=== PATIENT | female | born 1960 | race Two or more races ===

== ENCOUNTER → 2016-10-04 | Outpatient (REF) | payer OTHER, SELFPAY | LOC: M SFHCLERA 15:11 | PROVIDERS: ATTEND Nurse Practitioner Family | DX: N12 Tubulo-interstitial nephritis, not specified as acute or chronic (principal); R30.0 Dysuria | CPT/HCPCS: 87086; G0463 ==

== ENCOUNTER → 2017-03-13 | Outpatient (CLI) | payer OTHER, SELFPAY ==
--- NOTE | 2017-03-24 18:44 | REPMRS ---
Patient History The patient states she has not had a clinical breast exam in over a year. Patient is postmenopausal. No known family history of cancer. File area calling for [place] country priors Digital Mammo Screening Bilat: March 13, 2017 - Exam #: [id number] Bilateral CC and MLO view(s) were taken. Technologist: Lyssa Espinosa, Technologist Prior study comparison: February 12, 2016, digital bilateral screening mammo, performed at [address] [place] [address]. FINDINGS: There are scattered fibroglandular densities. There has been no change in the appearance of the mammogram from the prior studies. There is a mild amount of residual fibroglandular tissue which is fairly symmetric. There is no interval development of dominant mass, architectural distortion, or clustered microcalcification suggestive of malignancy. Scattered lymph nodes are seen in the axilla. No significant changes when compared with prior studies. ASSESSMENT: BI-RADS/ACR category 2 mammogram. Benign finding(s). Recommendation Routine screening mammogram in 1 year (for women over age 40). This mammogram was interpreted with the aid of an FDA-approved computer-aided dectection system. A. Negative x-ray reports should not delay biopsy if a dominant or clinically suspicious mass is present. B. Four to eight percent of cancers are not identified by mammography. C. Adenosis and dense breast may obscure an underlying neoplasm. Electronically Signed By: Adolph Hawthorne MD 03/24/17 [id number]
== END ==
LOC: M RAD 09:27
PROVIDERS: ATTEND Internal Medicine
DX: Z12.4 Encounter for screening for malignant neoplasm of cervix (principal)

== ENCOUNTER → 2018-05-22 | Outpatient (CLI) | payer OTHER ==
[2018-05-22 14:33] LABS: ALBUMIN 4.2 GM/DL (3.2-5.2); ALBUMIN/GLOBULIN RATIO 1.08 (1.00-1.93); ALKALINE PHOSPHATASE 69 U/L (45-117); ALT/SGPT 31 U/L (12-78); ANION GAP 9 MEQ/L (8-16); AST/SGOT 25 U/L (7-37); BILIRUBIN,TOTAL 0.7 MG/DL (0.2-1.0); BLOOD UREA NITROGEN 16 MG/DL (7-18); CALCIUM LEVEL 9.2 MG/DL (8.5-10.1); CARBON DIOXIDE LEVEL 25 MEQ/L (21-32); CHLORIDE LEVEL 106 MEQ/L (98-107); CHOLESTEROL LEVEL 273 MG/DL (<200); CREATININE FOR GFR 0.78 MG/DL (0.55-1.30); GLOMERULAR FILTRATION RATE > 60.0 (>51); GLUCOSE, FASTING 81 MG/DL (70-100); HDL CHOLESTEROL 60 MG/DL (>40); LDL CHOLESTEROL 178 MG/DL (<100); NON-HDL-C 213 MG/DL; POTASSIUM SERUM 4.3 MEQ/L (3.5-5.1); SODIUM LEVEL 140 MEQ/L (136-145); THYROID STIMULATING HORMONE 0.546 uIU/ML (0.358-3.740); TOTAL PROTEIN 8.1 GM/DL (6.4-8.2); TRIGLYCERIDES LEVEL 177 MG/DL (<150)
== END ==
LOC: M LAB 12:12
DX: M79.672 Pain in left foot (principal); E78.3 Hyperchylomicronemia
CPT/HCPCS: 73610

== ENCOUNTER → 2018-06-04 | Outpatient (REF) | payer OTHER, MEDICAID | LOC: M SFHCLERA 11:41 | DX: R30.0 Dysuria (principal) ==

== ENCOUNTER → 2018-12-15 | Outpatient (REF) | payer OTHER, MEDICAID ==
[2018-12-15 19:08] LABS: ALBUMIN 3.7 GM/DL (3.2-5.2); ALT/SGPT 30 U/L (12-78); BILIRUBIN,TOTAL 0.7 MG/DL (0.2-1.0); BLOOD UREA NITROGEN 12 MG/DL (7-18); CALCIUM LEVEL 8.9 MG/DL (8.8-10.2); CARBON DIOXIDE LEVEL 28 MEQ/L (21-32); CHLORIDE LEVEL 107 MEQ/L (98-107); CHOLESTEROL LEVEL 214 MG/DL (<200); CHOLESTEROL RISK RATIO 3.821 (<5); CREATININE FOR GFR 0.85 MG/DL (0.55-1.30); GLOMERULAR FILTRATION RATE > 60.0 (>45); GLUCOSE, FASTING 90 MG/DL (70-100); HDL CHOLESTEROL 56 MG/DL (>40); LDL CHOLESTEROL 135 MG/DL (<100); NON-HDL-C 158 MG/DL; POTASSIUM SERUM 4.2 MEQ/L (3.5-5.1); SODIUM LEVEL 142 MEQ/L (136-145); TOTAL PROTEIN 7.9 GM/DL (6.4-8.2); TRIGLYCERIDES LEVEL 116 MG/DL (<150)
[2018-12-15 19:50] LABS: HEMOGLOBIN A1c 5.6 %
== END ==
LOC: M LAB REF 16:55
PROVIDERS: ATTEND Family Medicine Addiction Medicine
DX: N30.01 Acute cystitis with hematuria (principal); R73.09 Other abnormal glucose

== ENCOUNTER → 2019-01-04 | Outpatient (REF) | payer OTHER, MEDICAID | LOC: M SFHCLERA 12:19 | PROVIDERS: ATTEND Physician Assistant | DX: J02.9 Acute pharyngitis, unspecified (principal) ==

== ENCOUNTER → 2019-01-11 | Outpatient (REF) | payer OTHER, MEDICAID ==
[2019-01-11 20:06] LABS: FREE T4 0.9 NG/DL (0.76-1.46); THYROID STIMULATING HORMONE 0.416 uIU/ML (0.358-3.740)
== END ==
LOC: M LAB REF 16:48
PROVIDERS: ATTEND Family Medicine Addiction Medicine
DX: E07.89 Other specified disorders of thyroid (principal)

== ENCOUNTER → 2019-07-10 | Outpatient (REF) | payer OTHER, MEDICAID ==
[2019-07-10 21:22] LABS: CHLAMYDIA DNA AMPLIFICATION NEGATIVE (NEGATIVE); GC DNA AMPLIFICATION NEGATIVE (NEGATIVE)
== END ==
LOC: M SFHCLERA 13:31
PROVIDERS: ATTEND Nurse Practitioner Family
DX: R30.0 Dysuria (principal)

== ENCOUNTER 2019-08-15 18:39 | Emergency (ER) | payer MEDICAID, OTHER ==
[~2019-08-15] VITALS: Ht 154.9 cm; Wt 61.6 kg
[2019-08-15] MEDS ORDERED: DAILTAB56 PO (18:49)
[2019-08-15 19:49] LABS: INFLUENZA A AMPLIFICATION NEGATIVE (NEGATIVE); INFLUENZA B AMPLIFICATION POSITIVE (NEGATIVE)
[2019-08-15 20:48] VITALS: BP 148/81
--- NOTE | 2019-08-16 07:41 | REP ---
Clinical: Cough and fever . Comparison: None . Technique: PA and lateral. Findings: The mediastinum and cardiac silhouette are normal. The lung arzola are clear and without acute consolidation, effusion, or pneumothorax. The skeletal structures are intact and normal. Impression: 1. No acute cardiopulmonary process. Electronically Signed by Daljit Haynes MD 08/16/2019 07:32 A
== END 2019-08-15 20:59 | disposition home or self-care (01) ==
LOC: M ED 18:39
DX: J10.89 Influenza due to other identified influenza virus with other manifestations (principal); I10 Essential (primary) hypertension

== ENCOUNTER 2019-09-18 11:25 | Emergency (ER) | payer OTHER ==
[~2019-09-18] VITALS: Ht 154.9 cm; Wt 62.1 kg
[~2019-09-18 11:25] MED LIST: DAILTAB56 PO
[2019-09-18] MEDS ORDERED: IBUP200T45 PO (11:30)
[2019-09-18] MEDS ORDERED: ACETAMINOPHEN 325 MG TAB PO ONE (12:00)
[2019-09-18 12:10] LABS: BASO % 0.1 % (0.0-1.0); EOS % 0.1 % (0.0-3.0); HEMATOCRIT 35.6 % (36.0-47.0); HEMOGLOBIN 11.9 g/dl (12.0-15.5); LYMPH # 0.8 10^3/uL (1.5-5.0); LYMPH % 6.9 % (24.0-44.0); MEAN CORPUSCULAR HEMOGLOBIN 29.9 pg (27.0-33.0); MEAN CORPUSCULAR HGB CONC 33.4 g/dl (32.0-36.5); MEAN CORPUSCULAR VOLUME 89.4 fl (80.0-96.0); MONO # 0.9 10^3/uL (0.0-0.8); MONO % 7.8 % (0.0-5.0); NEUTROPHILS # 9.8 10^3/uL (1.5-8.5); NEUTROPHILS % 84.6 % (36.0-66.0); PLATELET COUNT, AUTOMATED 253 10^3/uL (150-450); RED BLOOD COUNT 3.98 10^6/uL (4.00-5.40); WHITE BLOOD COUNT 11.6 10^3/uL (4.0-10.0)
[2019-09-18 12:32] LABS: ALBUMIN 3.2 GM/DL (3.2-5.2); BILIRUBIN,DIRECT 0.4 MG/DL (0.0-0.2); TOTAL PROTEIN 6.9 GM/DL (6.4-8.2)
--- NOTE | 2019-09-18 12:36 | REP ---
AP PORTABLE CHEST: 09/18/2019. Comparison PA lateral 08/15/2019. CLINICAL HISTORY: Cough and fever. FINDINGS: Lungs less well inflated than on the previous study with mild hypoinflation. Some minor basilar atelectatic changes without dense consolidation or pleural effusion noted. A few cuffed bronchi in the perihilar regions might reflect reactive airway disease or bronchitis. There is no gross cardiomegaly, vascular redistribution or edema. The aorta is calcified at the arch, mildly tortuous but unchanged and normal for age. The airway is intact. Bones are without acute finding. IMPRESSION: 1. Some minor basilar fibrotic changes and perihilar changes of bronchitis or reactive airway disease. No dense consolidation, visible effusion or other acute finding. 2. Heart size normal for portable technique with hypoinflation. No evidence of edema. Electronically Signed by Adolph Hawthorne MD 09/18/2019 07:59 P
[2019-09-18] MEDS ORDERED: ONDANSETRON 4MG/2ML VIAL (J2405) IV ONE (13:00)
[2019-09-18] MEDS ORDERED: NS 1,000 ML IV ONE (13:00)
[2019-09-18] MEDS ORDERED: CIPROFLOXACIN 400 MG in IV 1 EA IV ONE (13:00)
--- NOTE | 2019-09-18 13:46 | REP ---
CT ABDOMEN PELVIS WITHOUT CONTRAST: 09/18/2019 CLINICAL HISTORY: Abdominal pain. Evaluate for stone and/or UTI. TECHNIQUE: Renal stone protocol utilized with coronal and sagittal reconstructions. FINDINGS: CT abdomen lung bases show fibrotic and/or atelectatic changes in both lower lung zones better visualized than on the portable chest this date. No definite effusion. Heart size upper limits of normal. No pericardial thickening or effusion and no hiatal hernia. I see no hepatomegaly with a vertical diameter of the right lobe of the liver 16.2 cm midclavicular line. Left lobe not grossly enlarged. Contour of the liver smooth. No focal hepatic mass, biliary dilatation or adjacent ascites. Gallbladder shows no calcified stone or mass. The pancreas shows no mass, ductal dilatation or inflammatory change. No peripancreatic adenopathy or fluid collection. Adrenal glands show slight thickening of limbs that may reflect some mild adrenal hyperplasia. No mass or nodule. Kidneys show no renal stone, hydronephrosis, hydroureter or ureteral stone. No displacement of the course of the ureter. There are tiny periaortic and mesenteric nodes, which I would not regard as pathologic size by CT criteria. No ascites in the peroneal gutters. Index is seen and normal. No perforation or free air in the abdomen or pelvis on lung window review of all CT slices. Small bowel loops show scattered fluid and air but no dilated loops or inflammatory changes in the mesentery. Stool and gas are scattered in the colon without signs of colitis, diverticulitis, stricture or mass. The distal transverse colon, splenic flexure and left colon are collapsed without inflammatory changes in the adjacent fat that would clearly define colitis. The bone windows show lumbar lower thoracic vertebral levels with small marginal osteophytes. Posterior elements intact. There is no disc space narrowing or compression deformity. Visualized lower ribs are intact. CT PELVIS: Bone windows show the sacrum, SI joints, iliac bones, ischia, acetabuli and hips without fracture. There are some hip osteoarthritic changes bilaterally, mild and stable. Bladder, the distal ureters and urethral are without stone or mass visible on this study The distal left colon, sigmoid and rectum are grossly intact without signs of colitis or diverticulitis. There is no pelvic free fluid in the peroneal gutters or cul-de-sac. Uterus anteverted, tilted slightly towards the right but not enlarged. Small bowel loops in the pelvis intact. There is no ventral or inguinal hernia or pathologic sized inguinal adenopathy. The visualized muscles and soft tissues about the pelvis and hips as well as the buttocks and proximal thighs are all unremarkable. IMPRESSION: 1. No renal, ureteral or bladder stone. No hydronephrosis, hydroureter, mass or extrinsic mass effect. 2. Liver, spleen, gallbladder and adrenal glands are unchanged without acute finding. 3. Liver, spleen, gallbladder, adrenal glands and pancreas without acute finding. Small bowel loops intact. No free air, ascites, abscess or adenopathy. Electronically Signed by Adolph Hawthorne MD 09/18/2019 08:01 P
[2019-09-18] MEDS ORDERED: POTASSIUM CHLORIDE 10 MEQ SR TABLET PO ONE (14:45)
[2019-09-18 15:15] VITALS: BP 106/56
[2019-09-18] MEDS ORDERED: ZOFR4TAB16 PO (15:29)
[2019-09-18] MEDS ORDERED: CIPR-249 PO (15:29)
[2019-09-18] MEDS ORDERED: K-TA10TA PO (15:31)
== END 2019-09-18 15:56 | disposition home or self-care (01) ==
LOC: M ED 11:25
DX: N12 Tubulo-interstitial nephritis, not specified as acute or chronic (principal); R11.2 Nausea with vomiting, unspecified; R10.9 Unspecified abdominal pain; I10 Essential (primary) hypertension; E78.9 Disorder of lipoprotein metabolism, unspecified; G43.909 Migraine, unspecified, not intractable, without status migrainosus; Z87.440 Personal history of urinary (tract) infections
CPT/HCPCS: 71045; 74176; 80047; 80076; 81001; 83605; 83690; 85025; 87040; 87088; 87186; 93041; 94760; 96365; 96366; 96375; 99285; J0744; J2405

== ENCOUNTER → 2019-11-16 | Outpatient (REF) | payer OTHER, MEDICAID ==
[~2019-11-16] MED LIST changes: +CIPR-249 PO; +IBUP200T45 PO; +K-TA10TA PO; +ZOFR4TAB16 PO
[2019-11-16 12:51] LABS: BASO % 0.6 % (0.0-1.0); EOS # 0.1 10^3/uL (0.0-0.5); EOS % 1.7 % (0.0-3.0); HEMOGLOBIN 13.5 g/dl (12.0-15.5); LYMPH # 2.3 10^3/uL (1.5-5.0); LYMPH % 43.8 % (24.0-44.0); MEAN CORPUSCULAR HEMOGLOBIN 30.3 pg (27.0-33.0); MEAN CORPUSCULAR HGB CONC 33.8 g/dl (32.0-36.5); MEAN CORPUSCULAR VOLUME 89.9 fl (80.0-96.0); MONO # 0.3 10^3/uL (0.0-0.8); MONO % 4.9 % (0.0-5.0); NEUTROPHILS # 2.6 10^3/uL (1.5-8.5); NEUTROPHILS % 48.8 % (36.0-66.0); PLATELET COUNT, AUTOMATED 259 10^3/uL (150-450); RED BLOOD COUNT 4.45 10^6/uL (4.00-5.40); WHITE BLOOD COUNT 5.3 10^3/uL (4.0-10.0)
[2019-11-16 13:24] LABS: ALT/SGPT 24 U/L (12-78); BILIRUBIN,TOTAL 0.8 MG/DL (0.2-1.0); BLOOD UREA NITROGEN 16 MG/DL (7-18); CALCIUM LEVEL 9.4 MG/DL (8.8-10.2); CARBON DIOXIDE LEVEL 30 MEQ/L (21-32); CHLORIDE LEVEL 107 MEQ/L (98-107); CHOLESTEROL LEVEL 212 MG/DL (<200); CHOLESTEROL RISK RATIO 3.854 (<5); CREATININE FOR GFR 0.88 MG/DL (0.55-1.30); FREE T4 1.01 NG/DL (0.76-1.46); GLOMERULAR FILTRATION RATE > 60.0 (>45); GLUCOSE, FASTING 88 MG/DL (70-100); HDL CHOLESTEROL 55 MG/DL (>40); LDL CHOLESTEROL 124 MG/DL (<100); NON-HDL-C 157 MG/DL; POTASSIUM SERUM 4.3 MEQ/L (3.5-5.1); SODIUM LEVEL 141 MEQ/L (136-145); THYROID STIMULATING HORMONE 0.541 uIU/ML (0.358-3.740); TOTAL 25(OH) VITAMIN D 29.4 NG/ML (30.0-100.0); TOTAL PROTEIN 7.8 GM/DL (6.4-8.2); TRIGLYCERIDES LEVEL 164 MG/DL (<150)
[2019-11-16 16:34] LABS: HEMOGLOBIN A1c 5.8 %
== END ==
LOC: M LAB REF 12:04
PROVIDERS: ATTEND Nurse Practitioner Family
DX: Z13.9 Encounter for screening, unspecified (principal); J30.9 Allergic rhinitis, unspecified; E07.89 Other specified disorders of thyroid; R73.09 Other abnormal glucose; E55.9 Vitamin D deficiency, unspecified

== ENCOUNTER → 2020-02-15 | Outpatient (REF) | payer OTHER, MEDICAID ==
[2020-02-15 13:21] LABS: BASO % 0.3 % (0.0-1.0); EOS # 0.1 10^3/uL (0.0-0.5); EOS % 2.4 % (0.0-3.0); HEMATOCRIT 38.6 % (36.0-47.0); HEMOGLOBIN 12.8 g/dl (12.0-15.5); LYMPH # 2.8 10^3/uL (1.5-5.0); LYMPH % 47.9 % (24.0-44.0); MEAN CORPUSCULAR HGB CONC 33.2 g/dl (32.0-36.5); MEAN CORPUSCULAR VOLUME 90.4 fl (80.0-96.0); MONO # 0.3 10^3/uL (0.0-0.8); MONO % 5.1 % (0.0-5.0); NEUTROPHILS # 2.6 10^3/uL (1.5-8.5); PLATELET COUNT, AUTOMATED 265 10^3/uL (150-450); RED BLOOD COUNT 4.27 10^6/uL (4.00-5.40); WHITE BLOOD COUNT 5.9 10^3/uL (4.0-10.0)
[2020-02-15 13:49] LABS: HEMOGLOBIN A1c 5.7 %
[2020-02-15 13:52] LABS: ALBUMIN 3.9 GM/DL (3.2-5.2); ALT/SGPT 24 U/L (12-78); BILIRUBIN,TOTAL 0.7 MG/DL (0.2-1.0); BLOOD UREA NITROGEN 14 MG/DL (7-18); CALCIUM LEVEL 9.5 MG/DL (8.8-10.2); CARBON DIOXIDE LEVEL 27 MEQ/L (21-32); CHLORIDE LEVEL 108 MEQ/L (98-107); CHOLESTEROL LEVEL 235 MG/DL (<200); CHOLESTEROL RISK RATIO 4.433 (<5); CREATININE FOR GFR 0.91 MG/DL (0.55-1.30); FREE T4 0.98 NG/DL (0.76-1.46); GLOMERULAR FILTRATION RATE > 60.0 (>45); GLUCOSE, FASTING 83 MG/DL (70-100); HDL CHOLESTEROL 53 MG/DL (>40); LDL CHOLESTEROL 139 MG/DL (<100); NON-HDL-C 182 MG/DL; POTASSIUM SERUM 4.2 MEQ/L (3.5-5.1); SODIUM LEVEL 141 MEQ/L (136-145); THYROID STIMULATING HORMONE 0.431 uIU/ML (0.358-3.740); TOTAL 25(OH) VITAMIN D 37.9 NG/ML (30.0-100.0); TOTAL PROTEIN 7.9 GM/DL (6.4-8.2); TRIGLYCERIDES LEVEL 215 MG/DL (<150)
[2020-02-15 15:52] LABS: APPEARANCE, URINE CLEAR (CLEAR); BACTERIA, URINE AUTO NEGATIVE (NEGATIVE); BILIRUBIN, URINE AUTO NEGATIVE (NEGATIVE); BLOOD, URINE BLOOD 1+ (NEGATIVE); COLOR, URINE STRAW (YELLOW); GLUCOSE, URINE (UA) AUTO NEGATIVE (NEGATIVE); KETONE, URINE AUTO NEGATIVE (NEGATIVE); LEUKOCYTE ESTERASE, URINE AUTO NEGATIVE (NEGATIVE); MUCUS, URINE SMALL (NEGATIVE); NITRITE, URINE AUTO NEGATIVE (NEGATIVE); PROTEIN, URINE AUTO NEGATIVE (NEGATIVE); RBC, URINE AUTO 2 /HPF (0-3); SPECIFIC GRAVITY URINE AUTO 1.005 (1.002-1.035); SQUAMOUS EPITHELIAL CELL UR AU 0 /HPF (0-6); UROBILINOGEN, URINE AUTO 0.2 mg/dL (0.0-2.0); WBC, URINE AUTO 1 /HPF (0-3)
== END ==
LOC: M LAB REF 11:57
PROVIDERS: ATTEND Nurse Practitioner Family
DX: E78.5 Hyperlipidemia, unspecified (principal); R73.03 Prediabetes; Z13.9 Encounter for screening, unspecified; E07.89 Other specified disorders of thyroid; R50.9 Fever, unspecified; E78.3 Hyperchylomicronemia

== ENCOUNTER 2020-03-31 23:37 | Emergency (ER) | payer OTHER, MEDICAID ==
[2020-03-31] MEDS ORDERED: ACETAMINOPHEN 500 MG TAB ONE (23:54)
[2020-03-31] MEDS ORDERED: ACETAMINOPHEN 500 MG TAB As Ordered ONE (23:54)
[2020-04-01] MEDS ORDERED: cefTRIAXone SOD 1GM VIAL (J0696 PER 250MG) As Ordered ONE (00:48)
[2020-04-01] MEDS ORDERED: ISOVUE-370 76% 100ML VIAL As Ordered ONE (01:12)
[2020-05-14 18:20] LABS: BASO % 0.2 % (0.0-1.0); EOS # 0.1 10^3/uL (0.0-0.5); EOS % 0.6 % (0.0-3.0); HEMATOCRIT 34.6 % (36.0-47.0); HEMOGLOBIN 11.7 g/dl (12.0-15.5); LYMPH # 2.1 10^3/uL (1.5-5.0); LYMPH % 20.8 % (24.0-44.0); MEAN CORPUSCULAR HEMOGLOBIN 30.5 pg (27.0-33.0); MEAN CORPUSCULAR HGB CONC 33.8 g/dl (32.0-36.5); MEAN CORPUSCULAR VOLUME 90.1 fl (80.0-96.0); MONO # 0.8 10^3/uL (0.0-0.8); MONO % 8.1 % (0.0-5.0); NEUTROPHILS # 7.2 10^3/uL (1.5-8.5); NEUTROPHILS % 69.9 % (36.0-66.0); PLATELET COUNT, AUTOMATED 321 10^3/uL (150-450); RED BLOOD COUNT 3.84 10^6/uL (4.00-5.40); WHITE BLOOD COUNT 10.3 10^3/uL (4.0-10.0)
[2020-05-14 18:38] LABS: APPEARANCE, URINE CLEAR (CLEAR); BACTERIA, URINE AUTO 2+ (NEGATIVE); BILIRUBIN, URINE AUTO NEGATIVE (NEGATIVE); BLOOD, URINE BLOOD 2+ (NEGATIVE); COLOR, URINE YELLOW (YELLOW); GLUCOSE, URINE (UA) AUTO NEGATIVE (NEGATIVE); KETONE, URINE AUTO NEGATIVE (NEGATIVE); LEUKOCYTE ESTERASE, URINE AUTO 2+ (NEGATIVE); NITRITE, URINE AUTO NEGATIVE (NEGATIVE); PROTEIN, URINE AUTO NEGATIVE (NEGATIVE); RBC, URINE AUTO 4 /HPF (0-3); SPECIFIC GRAVITY URINE AUTO 1.004 (1.002-1.035); SQUAMOUS EPITHELIAL CELL UR AU 0 /HPF (0-6); UROBILINOGEN, URINE AUTO 0.2 mg/dL (0.0-2.0); WBC, URINE AUTO 15 /HPF (0-3)
[2020-06-19 11:57] LABS: ALBUMIN 3.2 GM/DL (3.2-5.2); ALT/SGPT 98 IU/L (0-32); BILIRUBIN,DIRECT 0.2 MG/DL (0.0-0.2); BILIRUBIN,TOTAL 0.6 MG/DL (0.2-1.0); BLOOD UREA NITROGEN 13 MG/DL (7-18); CALCIUM LEVEL 9.1 MG/DL (8.8-10.2); CARBON DIOXIDE LEVEL 26 mmol/L (20-29); CHLORIDE LEVEL 107 MEQ/L (98-107); CREATININE FOR GFR 0.88 MG/DL (0.55-1.30); GLOMERULAR FILTRATION RATE > 60.0 (>45); GLUCOSE, FASTING 91 MG/DL (70-100); POTASSIUM SERUM 3.5 MEQ/L (3.5-5.1); SODIUM LEVEL 139 MEQ/L (136-145); TOTAL PROTEIN 7.6 GM/DL (6.4-8.2)
== END 2020-04-01 03:05 | disposition home or self-care (01) ==
LOC: M ED 23:37
DX: N28.89 Other specified disorders of kidney and ureter (principal); N39.0 Urinary tract infection, site not specified; Z79.899 Other long term (current) drug therapy
CPT/HCPCS: 74177; 80048; 80076; 81001; 85025; 87088; 87186; 96374; 99284; J0696; Q9967

== ENCOUNTER → 2020-05-10 | Outpatient (CLI) | payer MEDICAID, OTHER ==
--- NOTE | 2020-05-25 12:42 | REP ---
RENAL ULTRASOUND: 05/10/20 CLINICAL: Possible renal mass. TECHNIQUE: Real time natarajan scale ultrasound evaluation using curved array transducer. FINDINGS: The bilateral kidneys are normal in contour, size, echogenicity and reniform shape without hydronephrosis, nephrolithiasis, cystic or obvious renal mass lesion. The right kidney measures 10.9 x 3.6 x 3.4cm. The left kidney measures 10.6 x 4.4x 4.7cm The bladder is normal without wall thickening or mass lesion and demonstrates bilateral ureteral jets. IMPRESSION: 1. Essentially normal age appropriate appearance to the bilateral kidneys without hydronephrosis or obvious renal mass lesion. Comparison is made with CT 04/01/20 and the findings involving the right kidney may have reflected pyelonephritis MTDD
== END ==
LOC: M RAD 10:47
PROVIDERS: ATTEND Nurse Practitioner Women's Health
DX: N39.0 Urinary tract infection, site not specified (principal)

== ENCOUNTER → 2020-06-06 | Outpatient (REF) | payer OTHER, MEDICAID ==
[2020-06-06 12:42] LABS: BASO % 0.4 % (0.0-1.0); EOS # 0.2 10^3/uL (0.0-0.5); EOS % 4.3 % (0.0-3.0); HEMATOCRIT 40.3 % (36.0-47.0); HEMOGLOBIN 13.4 g/dl (12.0-15.5); LYMPH # 2.2 10^3/uL (1.5-5.0); LYMPH % 44.2 % (24.0-44.0); MEAN CORPUSCULAR HEMOGLOBIN 30.2 pg (27.0-33.0); MEAN CORPUSCULAR HGB CONC 33.3 g/dl (32.0-36.5); MONO # 0.3 10^3/uL (0.0-0.8); MONO % 6.3 % (0.0-5.0); NEUTROPHILS # 2.2 10^3/uL (1.5-8.5); NEUTROPHILS % 44.6 % (36.0-66.0); RED BLOOD COUNT 4.43 10^6/uL (4.00-5.40); WHITE BLOOD COUNT 4.9 10^3/uL (4.0-10.0)
[2020-06-06 12:58] LABS: APPEARANCE, URINE CLEAR (CLEAR); BACTERIA, URINE AUTO NEGATIVE (NEGATIVE); BILIRUBIN, URINE AUTO NEGATIVE (NEGATIVE); BLOOD, URINE BLOOD 1+ (NEGATIVE); COLOR, URINE STRAW (YELLOW); GLUCOSE, URINE (UA) AUTO NEGATIVE (NEGATIVE); KETONE, URINE AUTO NEGATIVE (NEGATIVE); LEUKOCYTE ESTERASE, URINE AUTO NEGATIVE (NEGATIVE); MUCUS, URINE SMALL (NEGATIVE); NITRITE, URINE AUTO NEGATIVE (NEGATIVE); PROTEIN, URINE AUTO NEGATIVE (NEGATIVE); RBC, URINE AUTO 1 /HPF (0-3); SPECIFIC GRAVITY URINE AUTO 1.009 (1.002-1.035); SQUAMOUS EPITHELIAL CELL UR AU 0 /HPF (0-6); UROBILINOGEN, URINE AUTO 0.2 mg/dL (0.0-2.0); WBC, URINE AUTO 1 /HPF (0-3)
[2020-06-06 13:25] LABS: HEMOGLOBIN A1c 5.2 %
[2020-06-06 13:39] LABS: ALBUMIN 3.9 GM/DL (3.2-5.2); ALT/SGPT 24 U/L (12-78); BILIRUBIN,TOTAL 0.5 MG/DL (0.2-1.0); BLOOD UREA NITROGEN 18 MG/DL (7-18); CALCIUM LEVEL 9.7 MG/DL (8.8-10.2); CARBON DIOXIDE LEVEL 27 MEQ/L (21-32); CHLORIDE LEVEL 107 MEQ/L (98-107); CHOLESTEROL LEVEL 247 MG/DL (<200); CREATININE FOR GFR 0.86 MG/DL (0.55-1.30); GLOMERULAR FILTRATION RATE > 60.0 (>45); GLUCOSE, FASTING 87 MG/DL (70-100); HDL CHOLESTEROL 63 MG/DL (>40); LDL CHOLESTEROL 160 MG/DL (<100); NON-HDL-C 184 MG/DL; POTASSIUM SERUM 4.4 MEQ/L (3.5-5.1); SODIUM LEVEL 140 MEQ/L (136-145); TRIGLYCERIDES LEVEL 118 MG/DL (<150)
== END ==
LOC: M LAB REF 11:29
PROVIDERS: ATTEND Nurse Practitioner Family
DX: R73.03 Prediabetes (principal); Z13.9 Encounter for screening, unspecified; N76.0 Acute vaginitis

== ENCOUNTER 2020-09-21 16:42 | Emergency (ER) | payer OTHER, MEDICAID ==
[~2020-09-21] VITALS: Ht 157.5 cm; Wt 61.4 kg
[2020-09-21 16:42] VITALS: BP 162/77
--- OUTSIDE RECORDS SUMMARY | 2020-09-21 16:49 | CCD ---
Author Author [facility] Organization [facility] Address Unknown Phone Unavailable Care Team Providers Care Audio Production Instructor Name Role Phone Amy Quiroz Unavailable PROBLEMS Type Condition ICD9-CM Code IUI26-BH Code Onset Dates Condition S tatus SNOMED Code Notes Problem Lichen sclerosus L90.0 Active 90137559 Problem Hematuria due to acute cystitis N30.01 Active [id number] ALLERGIES No Known Allergies ENCOUNTERS from 1960 to 2020-07-23 Encounter Location Date Provider Diagnosis [facility] [place] [address] [address] December, Amy Quiroz Influenza B J10.1 ; Acute sinusitis, recurrence not specified, unspecified location J01.90 ; Sore throat J02.9 and Cough R05 IMMUNIZATIONS Vaccine Route Administration Date Status Influenza (6mo & up) Fluzone Unknown Oct 01, 2017 Oth ers Influenza (6mo & up) Fluzone Unknown May 27, 2016 Adm inistered SOCIAL HISTORY Tobacco Use: Social History Observation Description Date Details (start date - stop date) Never Smoker Sex Assigned At : Social History Observation Description Sex Assigned At Unknown Language: Question Answer Notes Languages spoken: Other Philipino Sexual Hx: Question Answer Notes Had sex in the last 12 months (vaginal, oral, or anal)? No Have you ever had an STD? No Alcohol Screening: Question Answer Notes Did you have a drink containing alcohol in the past year? No Points 0 Interpretation Negative BMI Care Goal Follow-Up Question Answer Notes Above Normal BMI Follow-Up Lifestyle education regarding t Tobacco Use: Question Answer Notes Are you a: never smoker never smoker REASON FOR REFERRAL No Information VITAL SIGNS Weight 133 lbs December, Height 60 in December, BMI 25.97 kg/m2 December, Heart Rate 71 /min December, Respiratory Rate 17 /min December, Temperature 98.1temporal degrees Fahrenheit December, Oximetry 99 December, Blood pressure systolic 163 mm Hg December, Blood pressure diastolic 82 mm Hg December, MEDICATIONS Medication SIG (Take, Route, Frequency, Duration) Notes Start Da te End Date Status Tylenol 325 MG 1 tablet as needed Orally every 4 hrs Active Clayton 3 1000 MG 1 capsule Orally Once a day for 30 day(s) Active Phenazopyridine HCl 200 MG 1 tablet after meals Orally Three times a day for 2 day(s) Oct, Active Cipro 500 MG 1 tablet Orally Twice a day for 7 day(s) 16 N 2018 Not-Taking Albuterol Sulfate HFA 108 (90 Base) MCG/ACT 1 puff as needed Inhalation every 4 hrs Not-Taking Airborne - as directed Orally Active Triamcinolone Acetonide 0.1 % 1 application Externally AAA Twice a day every other day x 1-2 wks, then prn for 30 days Oct, Active Multivitamin Adults 50+ A ctive Flonase 50 MCG/DOSE 1 spray in each nostril Nasally Once a day f or 30 day(s) Active Fish Oil 1000 MG 1 capsule Orally Once a day Active PROCEDURES No Information RESULTS Component Value Reference Range Rapid Flu (Iwona Influenza A+B VANDANA) Reviewed date:01/04/2019 12:18:28 Interpretation: Performing Lab:[facility], ,[place] [address] Internal Controls Performed (Y/N) yes Result A (Positive/Negative) neg Result B (Positive/Negative) pos Rapid Strep (Iwona Strep A+ VANDANA) Reviewed date:01/04/2019 12:18:28 Interpretation: Performing Lab:[facility], [place] [address] Internal Controls Performed (Y/N) yes Rapid Strep (Iwona Strep A+ VANDANA) Result (Positive/Negative) neg GATS (NEGATIVE STREP SCREEN) Reviewed date:01/05/2019 13:18:52 Interpretation: Performing Lab:[facility], [facility] [id number] , ,[place] [address] GATS CULTURE (NEG STREP SCR) FULL REPORT IN LAB NOTES (eCW and [facility]). GATS CULTURE (NEG STREP SCR) NEGATIVE FOR STREP PYOGENES (GROUP A) GATS CULTURE (NEG STREP SCR) REASON FOR VISIT STREP MEDICAL (GENERAL) HISTORY Type Description Date Medical History hyperlipidemia Surgical History No Surgical history information Hospitalization History typhoid fever Goals Section No Information Health Concerns No Information MEDICAL EQUIPMENT No Information MENTAL STATUS No Information FUNCTIONAL STATUS No Information ASSESSMENTS Encounter Date Diagnosis Assessment Notes Treatment Notes Treatm ent Clinical Notes December, Influenza B (ICD-10 - J10.1) You have influenza. This is a contagious virus; avoid others until you are feeling better and have been without fever for at least 24 hours. Supportive measures, ensure adequate fluid hydration, frequent hand washing, fever reducers as needed. Saline nasal drops, humidifier use, rest. Go to the ER if your symptoms worsen. December, Acute sinusitis, recurrence not specified, unspecified location (ICD-10 - J01.90) You may have a sinus infection. A prescription for antibiotics has been sent to your pharmacy. Take all medication as directed. Probiotics are also recommended while on antibiotics and for 3-4 weeks afterward to help prevent antibiotic induced diarrhea. Supportive measures, ensure adequate fluid hydration, saline nasal spray, humidifier use, frequent hand washing, and rest. Follow up if symptoms worsen/persist December, Sore throat (ICD-10 - J02.9) December, Cough (ICD-10 - R05) You have a very faint wheeze. You will be prescribed an inhaler. Follow-up if your sympotms worsen/persist PLAN OF TREATMENT Medication Medication Name Sig Start Date Stop Date Triamcinolone Acetonide 0.1 % 1 application Externally AAA Twice a day every other day x 1-2 wks, then prn for 30 days Oct, Treatment Notes Assessment Notes Clinical Notes Influenza B You have influenza. This is a contagious virus; avoid others until you are feeling better and have been without fever for at least 24 hours. Supportive measures, ensure adequate fluid hydration, frequent hand washing, fever reducers as needed. Saline nasal drops, humidifier use, rest. Go to the ER if your symptoms worsen. Acute sinusitis, recurrence not specified, unspecified location You may have a sinus infection. A prescription for antibiotics has been sent to your pharmacy. Take all medication as directed. Probiotics are also recommended while on antibiotics and for 3-4 weeks afterward to help prevent antibiotic induced diarrhea. Supportive measures, ensure adequate fluid hydration, saline nasal spray, humidifier use, frequent hand washing, and rest. Follow up if symptoms wo rsen/persist Cough You have a very faint wheeze . You will be prescribed an inhaler. Follow-up if your sympotms worsen/persist Next Appt Details prn Reason: Provider Name:Nicholas Mendez, 02:00:00 PM, [id number], [place], [address], Insurance Providers Payer Name Payer Address Payer Phone Insured Name Patient Relati onship to Insured Coverage Start Date Coverage End Date [facility] [employer] [facility] [address] [facility] [phone] TERENCE SIBLEY self
--- OUTSIDE RECORDS SUMMARY | 2020-09-21 16:49 | CCD ---
Author Author [facility] Organization [facility] Address Unknown Phone Unavailable Care Team Providers Care Leakage Tester Name Role Phone Liz Brown SWATCHER SWATCHER Unavailable Unavailable [place], A Juli SWATCHER Unavailable Unavailable [place], A Juli SWATCHER Unavailable Unavailable [place], A Juli SWATCHER Unavailable Unavailable [place], A Juli SWATCHER Unavailable Unavailable [place], A Juli SWATCHER Unavailable Unavailable [place], A Juli SWATCHER Unavailable Unavailable [place], A Juli SWATCHER Unavailable Unavailable [place], A Ujli SWATCHER Unavailable Unavailable Ruben, A Juli SWATCHER Unavailable Unavailable Ruben, A Juli SWATCHER Unavailable Unavailable Ruben, A Juli SWATCHER Unavailable Unavailable Ruben, A Juli SWATCHER Unavailable Unavailable Ruben, A Juli SWATCHER Unavailable Unavailable Ruben, A Juli SWATCHER Unavailable Unavailable Ruben, A Juli SWATCHER Unavailable Unavailable Ruben, A Juli SWATCHER Unavailable Unavailable Ruben, A Juli SWATCHER Unavailable Unavailable Ruben, A Juli SWATCHER Unavailable Unavailable Ruben, A Juli SWATCHER Unavailable Unavailable Ruben, A Juli SWATCHER Unavailable Unavailable Ruben, A Juli SWATCHER Unavailable Unavailable Ruben, A Juli SWATCHER Unavailable Unavailable Ruben, A Juli SWATCHER Unavailable Unavailable Ruben, A Juli SWATCHER Unavailable Unavailable Ruben, A Juli SWATCHER Unavailable Unavailable Ruben, A Juli SWATCHER Unavailable Unavailable Ruben, A Juli SWATCHER Unavailable Unavailable Brown, F Liz SWATCHER-BC Unavailable Unavailable Brown, F Liz SWATCHER-BC Unavailable Unavailable Brown, F Liz SWATCHER-BC Unavailable Unavailable Brown, F Liz SWATCHER-BC Unavailable Unavailable Brown, F Liz SWATCHER-BC Unavailable Unavailable Brown, F Liz SWATCHER-BC Unavailable Unavailable Brown, F Liz SWATCHER-BC Unavailable Unavailable Brown, F Liz SWATCHER-BC Unavailable Unavailable Brown, F Liz SWATCHER-BC Unavailable Unavailable Brown, F Liz SWATCHER-BC Unavailable Unavailable Brown, F Liz SWATCHER-BC Unavailable Unavailable Brown, F Liz SWATCHER-BC Unavailable Unavailable Brown, F Liz SWATCHER-BC Unavailable Unavailable Brown, F Liz SWATCHER-BC Unavailable Unavailable Brown, F Liz SWATCHER-BC Unavailable Unavailable Brown, F Liz SWATCHER-BC Unavailable Unavailable Brown, F Liz SWATCHER-BC Unavailable Unavailable Brown, F Liz SWATCHER-BC Unavailable Unavailable Brown, F Liz SWATCHER-BC Unavailable Unavailable Brown, F Liz SWATCHER-BC Unavailable Unavailable Brown, F Liz SWATCHER-BC Unavailable Unavailable Brown, F Liz SWATCHER-BC Unavailable Unavailable [place], Juli SWATCHER SWATCHER Unavailable Unavailable [place], A Juli SWATCHER Unavailable Unavailable [place], A Juli SWATCHER Unavailable Unavailable [place], A Juli SWATCHER Unavailable Unavailable [place], A Juli SWATCHER Unavailable Unavailable [place], A Juli SWATCHER Unavailable Unavailable [place], A Juli SWATCHER Unavailable Unavailable [place], A Juli SWATCHER Unavailable Unavailable [place], A Juli SWATCHER Unavailable Unavailable [place], A Juli SWATCHER Unavailable Unavailable [place], A Juli SWATCHER Unavailable Unavailable [place], A Juli SWATCHER Unavailable Unavailable [place], A Juli SWATCHER Unavailable Unavailable [place], A Juli SWATCHER Unavailable Unavailable [place], A Juli SWATCHER Unavailable Unavailable [place], A Juli SWATCHER Unavailable Unavailable [place], A Juli SWATCHER Unavailable Unavailable [place], A Juli SWATCHER Unavailable Unavailable [place], A Juli SWATCHER Unavailable Unavailable [place], A Juli SWATCHER Unavailable Unavailable Ruben, A Juli SWATCHER Unavailable Unavailable Ruben, A Juli SWATCHER Unavailable Unavailable Ruben, A Juli SWATCHER Unavailable Unavailable Ruben, A Juli SWATCHER Unavailable Unavailable Ruben, A Juli SWATCHER Unavailable Unavailable Ruben, A Juli SWATCHER Unavailable Unavailable Ruben, A Juli SWATCHER Unavailable Unavailable Ruben, A Juli SWATCHER Unavailable Unavailable Re-disclosure Warning The records that you are about to access may contain information from federally-assisted alcohol or drug abuse programs. If such information is present, then the following federally mandated warning applies: This information has been disclosed to you from records protected by federal confidentiality rules (42 CFR part 2). The federal rules prohibit you from making any further disclosure of this information unless further disclosure is expressly permitted by the written consent of the person to whom it pertains or as otherwise permitted by 42 CFR part 2. A general authorization for the release of medical or other information is NOT sufficient for this purpose. The Federal rules restrict any use of the information to criminally investigate or prosecute any alcohol or drug abuse patient.The records that you are about to access may contain highly sensitive health information, the redisclosure of which is protected by Article 27-F of the [facility] Public Health law. If you continue you may have access to information: Regarding HIV / AIDS; Provided by facilities licensed or operated by the [facility] Office of Mental Health; or Provided by the [facility] Office for People With Developmental Disabilities. If such information is present, then the following [facility] mandated warning applies: This information has been disclosed to you from confidential records which are protected by state law. State law prohibits you from making any further disclosure of this information without the specific written consent of the person to whom it pertains, or as otherwise permitted by law. Any unauthorized further disclosure in violation of state law may result in a fine or care home sentence or both. A general authorization for the release of medical or other information is NOT sufficient authorization for further disc losure. Encounters Encounter Providers Location Date Indications Data Source(s ) BC [place]-: [address] [place] [address], Ph. Attender: Juli YANCEY [facility] Medical 06/13/2020 12:00:00 AM EDT [facility] ([facility]) Outpatient Attender: BC HOFFMANP FP 06/10/2020 03:57:00 P M EDT [facility] Outpatient Attender: Juli HOFFMANP FP 06/10/2020 03:5 6:04 PM EDT [facility] Outpatient Attender: BC HOFFMANP FP 06/10/2020 03:56:02 P M EDT [facility] Outpatient Attender: Juli HOFFMANP FP 06/09/2020 01:1 1:59 AM EDT [facility] Outpatient Attender: BC HOFFMANP FP 06/08/2020 11:51:00 A M EDT [facility] Outpatient Attender: BC HOFFMANP FP 06/06/2020 08:37:01 A M EDT [facility] Outpatient Attender: BC Miranda SWATCHER FP 06/05/2020 12:00:00 P M EDT [facility] Outpatient Attender: BC HOFFMANP FP 04/19/2020 07:19:00 A M EDT [facility] Outpatient Attender: BC Miranda SWATCHER FP 04/18/2020 01:04:03 P M EDT [facility] Outpatient Attender: BC HOFFMANP FP 04/17/2020 04:06:01 P M EDT [facility] Outpatient Attender: BC HOFFMANP FP 04/05/2020 01:40:02 P M EDT [facility] Outpatient Attender: BC HOFFMANP FP 04/03/2020 09:59:00 A M EDT [facility] Outpatient Attender: BC HOFFMANP FP 03/15/2020 08:05:00 A M EDT [facility] Outpatient Attender: Juli HOFFMANP FP 02/29/2020 09:2 4:01 PM EDT [facility] Outpatient Attender: BC HOFFMANP FP 02/29/2020 09:23:59 P M EDT [facility] Outpatient Attender: Juli HOFFMANP FP 02/29/2020 09:2 3:01 PM EDT [facility] Outpatient Attender: BC HOFFMANP FP 02/29/2020 09:22:59 P M EDT [facility] Outpatient Attender: Juli HOFFMANP FP 02/29/2020 09:2 2:02 PM EDT [facility] Outpatient Attender: BC YANCEY FP 02/29/2020 09:22:01 P M EDT [facility] Outpatient Attender: BC Ruben SWATCHER FP 02/29/2020 09:21:02 P M EDT [facility] Outpatient Attender: Juli Miranda SWATCHER FP 02/29/2020 09:2 1:01 PM EDT [facility] Outpatient Attender: BC HOFFMANP FP 02/21/2020 12:49:00 P M EDT [facility] Outpatient Attender: BC HOFFMANP FP 02/18/2020 11:52:01 A M EDT [facility] Outpatient Attender: Juli Ruben YANCEY FP 02/18/2020 11:5 1:00 AM EDT [facility] Outpatient Attender: BC YANCEY FP 02/18/2020 09:51:00 A M EDT [facility] Outpatient Attender: BC HOFFMANP FP 02/18/2020 09:26:01 A M EDT [facility] Outpatient Attender: Juli Ruben YANCEY FP 02/17/2020 11:3 5:00 AM EDT [facility] Outpatient Attender: BC YANCEY FP 02/15/2020 03:11:04 P M EDT [facility] [address] [place] [address] 01/31/2020 12:00:00 AM EDT eCW1 ([facility]) Outpatient Attender: Juli HOFFMANP FP 01/17/2020 11:5 9:01 PM EDT [facility] Outpatient Attender: BC HOFFMANP FP 01/13/2020 02:06:00 P M EDT [facility] Outpatient Attender: BC YANCEY FP 01/13/2020 09:20:02 A M EDT [facility] Outpatient Attender: BC YANCEY FP 12/30/2019 03:39:00 P M EDT [facility] [address] [facility] [place] [address] 12/27/2019 12:00:00 AM EDT eCW1 ([facility]) [facility] [address] [facility] [place] [place] [address] 12/27/2019 12:00:00 AM EDT eCW1 ([facility]) [facility] [address] [facility] [place] [address] 12/22/2019 12:00:00 AM EDT eCW1 ([facility]) [facility] [address] [place] [address] 12/10/2019 12:00:00 AM EDT eCW1 ([facility]) Outpatient Attender: Liz CORONADO FP 12/03/2019 08: 42:00 PM EDT [facility] [address] [place] [address] 12/03/2019 12:00:00 AM EDT eCW1 ([facility]) Outpatient Attender: BC VASQUEZ 11/27/2019 10:30:01 PM EDT [facility] Outpatient Attender: Liz VASQUEZ 11/27/2019 10: 29:03 PM EDT [facility] Outpatient Attender: BC VASQUEZ 11/27/2019 10:29:01 PM EDT [facility] Outpatient Attender: BC VASQUEZ 11/23/2019 03:53:00 PM EDT [facility] Outpatient Attender: BC VASQUEZ 11/23/2019 10:26:01 AM EDT [facility] Outpatient Attender: Liz VASQUEZ 11/20/2019 11: 12:01 PM EDT [facility] Outpatient Attender: BC VASQUEZ 11/20/2019 11:11:59 PM EDT [facility] Outpatient Attender: BC VASQUEZ 11/17/2019 02:28:01 PM EDT [facility] Outpatient Attender: Liz VASQUEZ 11/16/2019 06: 05:01 PM EDT [facility] Outpatient Attender: BC VASQUEZ 11/16/2019 08:38:00 AM EDT [facility] Outpatient Attender: BC YANCEY FP 11/16/2019 08:24:01 AM EDT [facility] Outpatient Attender: Liz CORONADO FP 11/16/2019 08: 24:01 AM EDT [facility] [address] [facility] [place] [address] 11/16/2019 12:00:00 AM EDT eCW1 ([facility]) Outpatient Attender: BC YANCEY FP 11/12/2019 11:31:01 AM EDT [facility] [address] [facility] [place] [address] 11/01/2019 12:00:00 AM EDT eCW1 ([facility]) [facility] [address] [place] [address] 10/29/2019 12:00:00 AM EST eCW1 ([facility]) Outpatient Attender: BC YANCEY FP 10/25/2019 09:12:01 AM [facility] Outpatient 10/03/2019 06:35:00 PM [facility] Radiology Imaging Outpatient Attender: BC YANCEY FP 10/01/2019 11:03:00 AM [facility] Outpatient Attender: BC YANCEY FP 09/25/2019 08:51:01 AM [facility] Outpatient Attender: BC YANCEY FP 09/25/2019 08:50:00 AM [facility] Outpatient Attender: Liz CORONADO FP 09/24/2019 12: 06:00 PM [facility] Outpatient Attender: BC YANCEY FP 09/24/2019 11:51:00 AM [facility] Outpatient Attender: BC YANCEY FP 09/24/2019 11:50:00 AM [facility] Outpatient Attender: BC YANCEY FP 09/24/2019 11:13:00 AM [facility] Outpatient Attender: BC VASQUEZ 09/23/2019 11:19:58 AM [facility] Outpatient 09/21/2019 01:43:00 PM EST [facility] Outpatient 09/02/2019 03:11:00 PM [facility] Imaging Outpatient Attender: BC YANCEY FP 08/24/2019 02:16:00 PM [facility] Outpatient Attender: Liz CORONADO FP 08/24/2019 02: 15:59 PM [facility] Outpatient Attender: BC YANCEY FP 08/24/2019 08:18:38 AM [facility] Outpatient Attender: BC YANCEY FP 08/20/2019 09:00:00 AM [facility] Outpatient Attender: Lizwilfredo CORONADO FP 08/20/2019 08: 58:01 AM [facility] Outpatient Attender: BC YANCEY FP 08/19/2019 09:10:01 AM [facility] Outpatient Attender: Liz CORONADO 08/16/2019 12: 18:00 PM [facility] Medications Medication Brand Name Start Date Product Form Dose Route Admi nistrative Instructions Pharmacy Instructions Status Indications Reaction Description Data Source(s) Phenazopyridine hydrochloride 200 MG Oral Tablet Phena zopyridine HCl 200 MG Phenazopyridine HCl 200 MG 11/01/2019 12:00:00 AM EDT 1.0 {t ablet_after_meals} active Phenazopyridine HCl 200 MG eCW1 ([facility]) Phenazopyridine hydrochloride 200 MG Oral Tablet Phena zopyridine HCl 200 MG Phenazopyridine HCl 200 MG 11/01/2019 12:00:00 AM EDT active 1 tablet after meals eCW1 ([facility]) Phenazopyridine hydrochloride 200 MG Oral Tablet Phena zopyridine HCl 200 MG Phenazopyridine HCl 200 MG 11/01/2019 12:00:00 AM EDT active 1 tablet after meals eCW1 ([facility]) Triamcinolone Acetonide 0.001 MG/MG [place] [place] Ointment Triamcinolone Acetonide 0.1 % Triamcinolone Acetonide 0.1 % 10/29/2019 12:00:00 AM EST 1.0 {application} active Triamcinolone Aceton calvin 0.1 % eCW1 ([facility]) Triamcinolone Acetonide 0.001 MG/MG [facility] [place] Ointment Triamcinolone Acetonide 0.1 % Triamcinolone Acetonide 0.1 % 10/29/2019 12:00:00 AM EST active 1 application eCW1 ([facility]) Triamcinolone Acetonide 0.001 MG/MG [place] [place] Ointment Triamcinolone Acetonide 0.1 % Triamcinolone Acetonide 0.1 % 10/29/2019 12:00:00 AM EST active 1 application eCW1 ([facility]) Triamcinolone Acetonide 0.001 MG/MG [place] [place] Ointment Triamcinolone Acetonide 0.1 % Triamcinolone Acetonide 0.1 % 10/29/2019 12:00:00 AM EST active 1 application eCW1 ([facility]) Ciprofloxacin 500 MG Oral Tablet ciprofloxacin 500 mg tablet ciprofloxacin 500 mg tablet completed ciprofloxaci n 500 MG Oral Tablet [place] ([facility]) Amoxicillin 875 MG / Clavulanate 125 MG Oral Tablet amoxicillin 875 mg-potassium clavulanate 125 mg tablet amoxicillin 875 mg-potassium clavulanate 125 mg tablet completed amoxicillin 875 MG / clavulanate 125 MG Oral Tablet [place] ([facility]) Triamcinolone Acetonide 0.001 MG/MG [place] [place] Oint[facility] triamcinolone acetonide 0.1 % topical ointment triamcinolone acetonide 0.1 % topical ointment completed triamcinolone acetonide 0.001 MG /MG Topical Ointment [place] ([facility]) Ondansetron 4 MG Oral Tablet ondansetron HCl 4 mg tabl et ondansetron HCl 4 mg tablet completed ondansetron 4 M G Oral Tablet [place] ([facility]) Doxycycline Monohydrate 100 MG Oral Caps ule doxycycline monohydrate 100 mg capsule doxycycline monohydrate 100 mg capsule completed doxycycline monohydrate 100 MG Oral Capsule [place] ([facility]) Fluconazole 150 MG Oral Tablet fluconazole 150 mg tabl et fluconazole 150 mg tablet completed fluconazole 150 MG Oral Tablet [place] ([facility]) Prednisone 20 MG Oral Tablet prednisone 20 mg tablet prednisone 20 mg tablet completed prednisone 20 MG Oral Tablet [place] ([facility]) Insurance Providers Payer name Policy type / Coverage type Policy ID Covered democrat ID Covered democrat's relationship to sterling Policy Sterling Plan Information EMEDNY [id number] SP [id number] [employer] COMMUNITY PLAN MCDHMO [id number] SP [id number] Medicaid S [id number] S [id number] Managed Care - [facility] Community Plan P [id number] S [id number] MEDICAID M [id number] S [id number] [facility](MCAID) O [id number] S [id number] Medicaid S [id number] S [id number] MEDICAID [id number] SP [id number] Managed Care - [facility] Community Plan P [id number] S [id number] Medicaid S [id number] S [id number] Managed Care - [facility] P [id number] S [id number] UNHC COMMUNITY PLAN MCDHMO [id number] SP [id number] [facility] U [id number] Self [id number] [facility] I [id number] Self [id number] ANSI-Medicaid [id number] ANSI-Medicaid [id number] ANSI-Not a Secondary Insurance [id number] ANSI-Not a Secondary Insurance [id number] ANSI-Medicaid [id number] ANSI-Medicaid [id number] Medicaid S [id number] S [id number] [facility] P [id number] S [id number] ANSI-Medicaid [id number] ANSI-Medicaid [id number] ANSI-Not a Secondary Insurance [id number] ANSI-Medicaid [id number] ANSI-Medicaid [id number] ANSI-Not a Secondary Insurance [id number] Medicaid S [id number] S [id number] [facility] P [id number] S [id number] Medicaid S [id number] S [id number] [facility] [id number] SO2 [id number] [facility] O [id number] S [id number] SELF PAY ONLY [id number] SP [id number] [facility] [id number] SO2 [id number] SELF PAY ONLY UNAVAILABLE SP UNAV AILABLE Problems, Conditions, and Diagnoses Code Display Name Description Problem Type Effective Dates Data Source(s) 525.13 LOSS OF TEETH DUE TO CARIES LOSS OF TEETH DUE TO VICENTE S 04/18/2020 01:03:50 PM EDT [facility] [id number] 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 Comple te Edentulism Due to Caries Problem 04/18/2020 12:00:00 AM EDT [place] ([facility]) R10.9 Unspecified abdominal pain Unspecified abdominal pain ( Right Flank) 04/05/2020 01:39:02 PM EDT [facility] 788.1 Dysuria Dysuria 04/05/2020 01:39:02 PM ED T [facility] N28.89 Other specified disorders of kidney and ureter Renal m ass 04/05/2020 01:39:02 PM EDT [facility] [id number] Finding of female genital functions Find ing of Female Genital Functions Problem 04/05/2020 12:00:00 AM EDT [place] ([facility]) 73395378 Abdominal pain Abdominal Pain Problem 04/05/2020 12:00: 00 AM EDT [facility]) 28719935 Dysuria Dysuria Problem 04/05/2020 12:00:00 AM ED T [place] ([facility]) 521.00 Dental caries Dental caries 02/18/2020 11:50:16 AM EDT [facility] 630873306 Dental arch length loss secondary to [place] caries Dental Arch Length Loss Secondary to Dental Caries Problem 02/18/2020 12:00:00 AM EDT [place] DE[place] ([facility]) V70.0 Encounter for general adult medical exam ination with abnormal findings Encounter for general adult medical examination with abnormal findings 01/13/2020 09:19:45 AM EDT [facility] [id number] Procedure by method Procedure by Method Problem 0 01/13/2020 12:00:[facility] 148[facility] Hyperlipidemia, unspecified Hyperlipidemia, unspecifie d 11/27/2019 10:28:13 PM EDT [facility] V65.8 Person consulting for explanation of exa mination or test findings Person consulting for explanation of examination or test findings 11/23/2019 10:24:28 AM EDT [facility] R73.03 Prediabetes Prediabetes 11/23/2019 10:24:28 AM EDT [facility] [id number] Patient asked to attend Patient Asked to Attend Proble m 11/23/2019 12:00:00 AM EDT [place] ([facility]) [id number] Prediabetes Prediabetes Problem 11/23/2019 12:00:00 AM EDT [facility]) 21123518 Hyperlipidemia Hyperlipidemia Problem 11/23/2019 12:00: 00 AM EDT [facility]) V70.0 Health Screening Health Screening 11/16/2019 08 :23:09 AM EDT [facility] [id number] Clinical finding Clinical Finding Problem 11/16/2019 12 :00:00 AM EDT [place] ([facility]) N30.01 [id number] Hematuria due to acute cystitis Proble 11/01/2019 12:00:00 AM EDT eC ([facility]) N30.01 [id number] Hematuria due to acute cystitis Proble 11/01/2019 12:00:00 AM EDT eC ([facility]) L90.0 44639881 Lichen sclerosus Problem 10/29/2019 12:00:00 AM EST [facility] ([facility]) L90.0 28514915 Lichen sclerosus Problem 10/29/2019 12:00:00 AM EST eC ([facility]) N76.0 Acute vaginitis Vaginitis 09/24/2019 11:48:45 AM EST [facility] 79931896 Acute vaginitis Acute Vaginitis Problem 09/24/2019 12:0 0:00 AM EST [facility]) 02933995 Acute upper respiratory infection, unspe cified Acute upper respiratory infection, unspecified 08/24/2019 02:15:43 PM EST [facility] 297188317 Disorder of upper respiratory system Dis order of Upper Respiratory System Problem 08/24/2019 12:00:00 AM EST [facility]) Surgeries/Procedures Procedure Description Date Indications Data Source(s) URINE-NO MICRO 11/01/2019 12:00:00 AM EDT eCW1 ([facility]) Results ID Date Data Source [id number] 06/06/2020 09:41:22 AM EDT [facility] Labs In-House Urine TestsDate/Time Colle cted: June 06, 2020 8:55 AMTest Result Reference Range Normal ValueComments: Urine collected in officeAnna Spann MA, June 06, 2020 9:42 AMBlood TestsDate/Time Collected: June 06, 2020 8:55 AMTest Result Reference Range Normal ValueComments: Blood drawn in office from left AC, tolerated wellAnna Spann MA, June 06, 2020 9:42 AMAssessment & Plan Orders:[id number] Vst-Est Level I [CPT-66470] 49641 - Venipuncture [CPT-72639] Name Value Range Interpretation Code Description Data Rubina rce(s) Supporting Document(s) ID Date Data Source [id number] 06/06/2020 08:55:00 AM EDT [facility] Name Value Range Interpretation Code Description Data Rubina rce(s) Supporting Document(s) URINECULTRTN NO GROWTH [facility] ID Date Data Source [id number] 06/06/2020 08:55:00 AM EDT [facility] Name Value Range Interpretation Code Description Data Rubina rce(s) Supporting Document(s) APPEARANCE U CLEAR CLEAR N [facility] SPEC GR URIN 1.009 1.002-1.035 N [facility] amily [facility] UA COLOR STRAW YELLOW N [facility] ID Date Data Source [id number] 06/06/2020 08:55:00 AM EDT [facility] Name Value Range Interpretation Code Description Data Rubina rce(s) Supporting Document(s) HCT 40.3 % 36.0-47.0 N [facility] HGB 13.4 g/dL 12.0-15.5 N [facility] MCH 33.3 G/DL pg 32.0-36.5 N [facility] melita Health MCHC 30.2 PG % 27.0-33.0 N [facility] [facility] PLATELETS TNP 10 10*3/mm3 150-450 [facility] RBC 4.43 10 10*6/mm3 4.00-5.40 [facility] RDW 11.8 % 11.5-14.5 N [facility] WBC TOTAL 4.9 4.0-10.0 N [facility] ID Date Data Source [id number] 06/06/2020 08:55:00 AM EDT [facility] Name Value Range Interpretation Code Description Data Rubina rce(s) Supporting Document(s) HGBA1C 5.2 % N [facility] ID Date Data Source [id number] 06/06/2020 08:55:00 AM EDT [facility] Name Value Range Interpretation Code Description Data Rubina rce(s) Supporting Document(s) BG FASTING 87 mg/dL 70-100 [facility] ID Date Data Source [id number] 04/18/2020 08:51:19 AM EDT [facility] Patient History Medical History:high cho lesterolhypertensionFamily History:Hypertension (Mother)kidney failure ( Father) Social/Personal History: Smoking Status: never smokerCurrent Problems: LOSS OF TEETH DUE TO CARIES (ICD- 525.13) (SDK50-V83.139)Unspecified abdominal pain ( Right Flank) (ICD10- R10.9)Dysuria (ICD-788.1) (VYA76-R89.0)Renal mass (ICD-593.9) (ICD10- N28.89)Dental caries (ICD-521.00) (XTF40-P98.9)Encounter for general adult medical examination with abnormal findings (ICD-V70.0) (ICD10- Z00.01)Hyperlipidemia, unspecified (SQU98-H84.5)Person consulting for explanation of examination or test findings (ICD-V65.8) (VYT21-N87.2)Prediabetes (YFY65-H15.03)Health Screening (ICD-V70.0) (JUK71-Q23.9)Vaginitis (ICD-616.11) (QOU01-H40.0)Acute upper respiratory infection, unspecified (GEL52-E57.9)A llergic rhinitis, unspecified (GRH51-D73.9)Encounter for general adult medical examination without abnormal findings (JYL15-K14.00)Euthyroid hyperthyroxinamia (ICD-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) (QIU68-V18.89)Acute cystitis with hematuria (WWW20-O59.01)Other abnormal glucose (JDV35-S40.09)Fever, unspecified (ICD-780.60) (ICD10- R50.9)Vitamin D deficiency, unspecified (MEG69-C83.9)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1 % EXTERNAL CREAM (TRIAMCINOLONE ACETONIDE) apply to affected area twice daily as needed; Route: EXTERNAL* VITAMIN D one tablet once daily; Route: ORAL* VITAMIN C GUMMIES OTC 2 gummies once daily; Route: ORALFLONASE ALLERGY RELIEF 50 MCG/ACT NASAL SUSPENSION (FLUTICASONE PROPIONATE) 2 sprays each nostril once a day; Route: NASALCO-Q 10 OMEGA-3 FISH OIL ORAL CAPSULE (COENZYME M38-QXMB OIL-VIT E) take 2 tabs po qd; Route: ORAL* 50+ OTC MULTIVITAMIN Past Medical History:(reviewed - no changes required) high cholesterolhypertension Dental Chart: Procedures:Type - CDT Code - Description B - (D03 30) Panoramic film (Performed by Nichole Triplett) B - (D0274) Bitewings, 4 radiographic images (Performed by Nichole Triplett) B - (D1110) Prophylaxis, adult (Performed by Nichole Triplett) B - (D0150) Comprehensive oral evaluation - new or established patient (Performed by Tracey Mendez DMD) B - (D0230) Intraoral, periapical, each additional radiographic image on Tooth # 22 (Performed by Nichole Triplett) B - (D0230) Intraoral, periapical, each additional radiographic image on Tooth # 24 (Performed by Nichole Triplett) B - (D0230) Intraoral, periapical, each additional radiographic image on Tooth # 26 (Performed by Nichole Triplett) B - (D0220) Intraoral, periapical, first radiographic image on Tooth # 8 (Performed by Nichole Triplett) Treatments:Type - CDT Code - Description T - (D5110) Complete denture - maxillary on Tooth # 1,2,3,4,5,6,7,8,9,10,11,12,13,14,15,16 (Performed by Nichole Triplett) Existing:Type - CDT Code - Description[E] Partial - Max Acryl On #2,3,4,5,6,7,10,11,12,13,14,15[E] Missing - [place] Only/Root Tip On #2 Surface O Region X[E] Resin-Based Composite - Direct On #1 Surface MO, #21 Surface DO, #22 Surface D, #29 Surface O[E] Missing - [place] and Root On #10 Surface I Region XR, #11 Surface I Region XR, #12 Surface O Region XR, #13 Surface O Region XR, #14 Surface O Region XR, #15 Surface O Region XR, #17 Surface O Region XR, #18 Surface O Region XR, #19 Surface O Region XR, #20 Surface O Region XR, #28 Surface O Region XR, #3 Surface O Region XR, #30 Surface O Region XR, #31 Surface O Region XR, #32 Surface O Region XR, #4 Surface O Region XR, #5 Surface O Region XR, #6 Surface I Region XR, #7 Surface I Region XR Chart Notes:gabino (Apr 18 2020 12:03PM): [facility]- no changes as per daughter who translates Patient had a consult visit at [facility], and Dr. Dimas had recommended extraction of maxillary teeth and fabrication of maxillary complete denture. Dr. Mendez recommended UCD. Patient was informed of the wait time at [facility] for dentures. Daughter was not sure whether to have it done in [facility] or be referred out .Patient is wearing a denture max RPD which was [facility] in [facility] with an abscess. Patient was prescribed antibiotics Daughter wanted to know if patient could take these antibiotics as she was have a procedure done on Apr 25. Dr. Mendez recommended that patient talked to her General Internist And Physician Leader about it Patient is brushing twice/day, flossing regularly and uses fl rinse Marginal and interproximal calculus in sextant 5. . Used hand instrumentsOHI-brushing am pm, flossing and then using Listerine zero total carePatient was cooperativeNV-6 months recall Nichole Triplett by gabino (04/18/2020 12:01 PM): ; tabitha (Apr 18 2020 1:03PM): [facility]). CC: none. Reviewed Xrays. Exam: abscess location buccal to #9 detected. Discussed with treatment option about upper partial vs full. De pending who is doing the denture different denture might be offered. But at this point #8 and #9 should min be removed. Along with the retain root tip. OCS: WNL, IO/ EO completed, No significant hard findings upon clinical exam.Additional PPE requirements due to COVID-19 in the dental setting, N95, surgical mask, hair covering, gown and shieldPt was cooperative. Pt would like to consult with his physician first before we Rx an course of antibiotic for the tooth absecess. OHI given Referral: GD for denture NV:ext?Nichole Triplett by tabitha (04/18/2020 1:02 PM): Tooth Notes and Watches: Assessment & Plan Problems:Added: LOSS OF TEETH DUE TO CARIES (ICD-525.13) (ICD10- K08.139)Medications:CIPRO 500 MGTRIAMCINOLONE ACETONIDE 0.1 % EXTERNAL CREAMVITAMIN DVITAMIN C GUMMIESFLONASE ALLERGY RELIEF 50 MCG/ACT NASAL SUSPENSIONCO-Q 10 OMEGA-3 FISH OIL ORAL LCGBOQD85+ OTC MULTIVITAMINAllergies:No Known Allergies (updated 04/18/2020) Orders:Multi-Service Referral [[id number]] Name Value Range Interpretation Code Description Data Rubina rce(s) Supporting Document(s) ID Date Data Source [id number] 04/05/2020 12:15:39 PM EDT [facility] Measurements & CalculationsHeight: 61 inches (5 ft. 1 in.) 154.94 cm Weight: 125 pounds 8 oz. 57.05 kg Body Mass Index (BMI): 23.80BMI Interpretation: Healthy WeightBody Surface Area (BSA): 1.55Weight Management Education Done (Nutrition/Physical Activity)Vital SignsTemperature: 98.3FPulse Rate: 66 beats/minuteRespiratory Rate: 14 respirations/minuteBlood Pressure: 124/72 O2 Saturation: 96% Vital Signs performed by: Mariam Oleary LPN, April 05, 2020 12:18 PMVital Signs performed by: Mariam Oleary LPN, April 05, 2020 12:18 PMInitial Intake Information From: patientRoom #: 15Infectious Disease / Travel ScreeningRecent travel for you or any close contacts? NoHave you had any close contact with anyone diagnosed with or under investigation for COVID-19 (coronavirus)? NoFever? YesRespiratory symptoms: cough, cold, congestion, shortness of breath, difficulty breathing? NoLoss of smell? NoLoss of taste? NoDetails: due to lesions Smoking, Tobacco, Vaping or Smoke Exposure StatusSmoke Status: never smokerTobacco Use: NoDo you vape? NoPassive Smoke Exposure: NoMenstrual HistoryAny possibility of ? NoComments: MenopauseHealthcare HistorySince your last office visit...Have you been admitted to the hospital? NoHave you been to an emergency room (ER) or urgent care clinic? Yes - [facility] ER Emergency room (ER) or urgent care date reported today: 03/31/2020Have you seen another healthcare provider? Yes - Urology Have you seen a dentist? Yes - [facility] Intake performed by: Mariam Oleary LPN, April 05, 2020 12:20 PMRate Your HealthIn general, would you say your health is? GoodPain AssessmentAre you currently having any pain which... You would like your provider to address? Yes Affects your activity level? NoDepression Screening - PHQ-2Over the last two weeks, have you... Had little interest or pleasure in doing things? Not at all Been feeling down, depressed, or hopeless? Not at all PHQ-2 Score: 0Anxiety Screening - DUYEN-2Over the last two weeks, have you been... Feeling nervous, anxious, or on edge? Not at all Unable to stop or control worrying? Not at all DUYEN-2 Score: 0Food InsecurityWithin the past year...Did you worry whether your food would run out before you got money to buy more? NoWas there a time when the food you bought didn't last and you didn't have money to get more? NoPain AssessmentPain ScaleNumeric Rating Scale: 3 / 10Location: Right side Duration: 1 weekFrequency: DailyCharacter/Quality: sharp and stabbingScreening, Brief Intervention, & Referral to Treatment (SBIRT)Pre-Screening Questions How many times have you have 4 or more drinks in a day? 0How many times have you used an illegal drug or used a prescription medication for a non-medical reason? 0Patient History Medical History:high cholesterolhypertensionSurgical History:Family History:Hypertension (Mother)kidney failure ( Father) Social/Personal History: Chief Complaintfollow from [facility] ER for Renal Lesions room 15History of Present Illness (HPI)59 YO female here for follow up from [facility] ER for kidney lesions. Pt is accompanied by her daughter today. Pt states fever and blood in urine x 5 days , prior to going to the ER. Pt denies fever or blood in urine at this time. Pt states CT scan done at ER indicated lesion on the right kidney. Pt states was told to follow with oncology but referreral is required. Pt states was seen by urologist Dr Mendez , this AM. Pt states still taking cipro ABX. Pt states still right flank pain 2-3 on 0-10 scale. Pt states Tylenol effective. HPI performed by: Juli YANCEY, April 05, 2020 1:16 PMTransitions of Care InboundProblem ReviewProblem List was reviewed and/or updated during this visit.Medication Reconciliation & ReviewMedication List was reviewed and/or updated during this visit, including review of any mqup-hlx-tsgiyxj medications, herbal therapies, and/or supplements.Allergy ReviewAllergy List was reviewed and/or updated during this visit. Patient has no known allergies.Adult Preventive CareProvider Calculated and Reviewed all Clinical Protocols for patient today. Labs/Meds/Other Counseling-Nutrition and Physical Activity:BMI Interpretation: Healthy Weight (04/05/2020) Counseling: Done (04/05/2020) Physical Activity: Done (04/05/2020)Review of Systems General: Denies loss of appetite, chills, dizziness, fatigue, fever, continued fever, headache, feeling ill, sweats, night sweats, sleep disturbances, weight loss. Eyes: Denies blurring of vision, double vision, irritation, discharge, vision loss, eye pain, eye swelling, droopy eyelid, sensitivity to light, redness, itching. Ears/Nose/Throat: Denies earache, ear discharge, ringing in ears, decreased hearing, nasal congestion, nosebleeds, runny nose, sore throat, hoarseness, difficulty swallowing, dry mouth, tooth pain, bleeding gums, swollen glands. Cardiovascular: Denies chest pain, palpitations, feeling faint, trouble breathing w/exertion, SOB upon lying down, SOB at night, peripheral edema, elevated blood pressure, decreased heart rate. Respiratory: Denies cough, difficulty breathing, shortness of breath, excessive sputum, coughing up blood, wheezing, chest pain. Breast: Denies discoloration, tenderness, breast changes, breast lump, nipple discharge. Gastrointestinal: Complains of abdominal pain. Denies nausea, vomiting, bleeding, burning, itching, irritation, cramps, diarrhe a, constipation. Genitourinary: Denies urinary incontinence, pain with urination, burning with urination, urinary frequency, urinary hesitancy, urinary urgency, urinary urgency at night, incomplete emptying, blood in urine. Musculoskeletal: Denies back pain, joint pain, leg pain, other pain-see comments, joint swelling, body aches, muscle aches, muscle cramps, muscle weakness, stiffness, recent injury. Skin: Denies rash, hives, redness, itching, dryness, nail changes, suspicious lesions, athlete's foot, rash on palms, rash on bottom of feet. Neurologic: Denies muscle impairment, weakness, numbne ss/tingling, seizures, slurred speech, feeling faint, tremors, vertigo, paralysis on one side, paralysis on both sides. Psychiatric: Denies depression, anxiety, memory loss, mental disturbance, suicidal ideation, homicidal ideation, hallucinations, paranoia, feeling stressed, hearing voices. Endocrine: Denies cold intolerance, heat intolerance, excessive thirst, excessive hunger, excessive urination, weight loss, weight gain. Heme/Lymphatic: Denies abnormal bruising, bleeding, enlarged lymph nodes. Physical ExamGeneral Appearance: well nourished, well hydrated, no acute distressEyes, External: conjunctivae and lids normal, EOMIRespiratory, Auscultation: clear to auscultation bilaterally; no rales, rhonchi, or wheezesRespiratory, Effort: no intercostal retractions or use of accessory musclesCardiovascular, Auscultation: S1, S2 audible; no murmur, rub, or gallop; RRRPeripheral Circulation: no clubbing, cyanosis, edema, or varicositiesAbdomen: right flank tender on palpation. Gait & Station: normalSkin, Inspection: no rashes, lesions, or ulcerationsOrientation: oriented to time, place, and personMood & Affect: no depression, anxiety, or agitationJudgment & Insight: intactCare Management Plan Transitions of CareInboundRate Your HealthIn general, would you say your health is? GoodAssessment & Plan Problems:Added: Renal mass (ICD-593.9) (ISJ35-L87.89) Assessment: Instructions: We have made a referral for you today. We will contact you to set this up.Please continue medications as prescribed. May take OTC tylenol as needed for pain.Unspecified abdominal pain ( Right Flank) (LUE92-M71.9) Assessment: Pt states right flank pain 2-3 on 0-10 scaleCT scan done solid renal mass need further work up. Instructions: May take tylenol as needed for for pain. please cotinue antibiotics until finished. Please try to maintain adequate intake of water daily.Renal mass (ICD-593.9) (JBW63-F50.89) Assessment: Recent CT scan at [facility] 04/01 indicates renal lesion/ renal mass. referral to oncology for further eval. Pt denies significant pain or blood in urine at this time.Dysuria (ICD-788.1) (IJP55-W52.0) Assessment: Pt was started on Cipro. Instructions: Please continue medication as prescribed. If symptoms worsen, please return to clinic or the ER.Patient Instructions/Care Plan: Renal mass: We have made a referral for you today. We will contact you to set this up.Please continue medications as prescribed. May take OTC tylenol as needed for pain.Unspecified abdominal pain ( Right Flank): May take tylenol as needed for for pain. please cotinue antibiotics until finished. Please try to maintain adequate intake of water daily.Dysuria: Please continue medication as prescribed. If symptoms worsen, please return to clinic or the ER. Plan developed in collaboration with patient and/or familyMedications:CIPRO 500 MGTRIAMCINOLONE ACETONIDE 0.1 % EXTERNAL CREAMVITAMIN DVITAMIN C GUMMIESFLONASE ALLERGY RELIEF 50 MCG/ACT NASAL SUSPENSIONCO-Q 10 OMEGA-3 FISH OIL ORAL CAPSU LE50+ OTC MULTIVITAMINMedication Changes:Added: * CIPRO 500 MG-Twice dailyAllergies:No Known Allergies (updated 04/05/2020) Orders:Other Referral [[id number]] Adult - Ofc Vst, EST, Level III [[id number]] Follow-Up Return to clinic: as scheduled and as needed. Clinical Visit Summary Completed Name Value Range Interpretation Code Description Data Rubina rce(s) Supporting Document(s) ID Date Data Source [id number] 03/15/2020 08:26:35 AM EDT [facility] Measurements & CalculationsHeight: 61 inches (5 ft. 1 in.) 154.94 cm Weight: 132 pounds 2 oz. 60.06 kg Body Mass Index (BMI): 25.06BMI Interpretation: OverweightBody Surface Area (BSA): 1.59Weight Management Education Done (Nutrition/Physical Activity)Vital SignsTemperature: 98.2FPulse Rate: 75 beats/minuteRespiratory Rate: 15 respirations/minuteBlood Pressure: 131/80 O2 Saturation: 98% Vital Signs performed by: Mariam Oleary LPN, March 15, 2020 8:28 AMVital Signs performed by: Mariam Oleary LPN, March 15, 2020 8:28 AMInitial Intake Information From: daughterRoom #: 14Infectious Disease / Travel ScreeningRecent travel for you or any close contacts? NoHave you had any close contact with anyone diagnosed with or under investigation for COVID-19 (coronavirus)? NoFever? NoRespiratory symptoms: cough, cold, congestion, shortness of breath, difficulty breathing? NoLoss of smell? NoLoss of taste? NoSmoking, Tobacco, Vap ing or Smoke Exposure StatusSmoke Status: never smokerTobacco Use: NoDo you vape? NoMenstrual HistoryAny possibility of ? NoComments: menopauseHealthcare HistorySince your last office visit...Have you been admitted to the hospital? NoHave you been to an emergency room (ER) or urgent care clinic? NoHave you seen another healthcare provider? No - Urology Have you seen a dentist? Yes - [facility] performed by: Mariam Oleary LPN, March 15, 2020 8:31 AMRate Your HealthIn general, would you say your health is? Very GoodPain AssessmentAre you currently having any pain which... You would like your provider to address? No Affects your activity level? NoDepression Screening - PHQ-2Over the last two weeks, have you... Had little interest or pleasure in doing things? Not at all Been feeling down, depressed, or hopeless? Not at all PHQ-2 Score: 0Anxiety Screening - DUYEN-2Over the last two weeks, have you been... Feeling nervous, anxious, or on edge? Not at all Unable to stop or control worrying? Not at all DUYEN-2 Score: 0Food InsecurityWithin the past year...Did you worry whether your food would run out before you got money to buy more? NoWas there a time when the food you bought didn't last and you didn't have money to get more? NoScreening, Brief Intervention, & Referral to Treatment (SBIRT)Pre-Screening Questions How many times have you have 4 or more drinks in a day? 0How many times have you used an illegal drug or used a prescription medication for a non-medical reason? 0Performed by: Mariam Oleary LPN, March 15, 2020 8:35 AMPatient History Medical History:high cholesterolhypertensionSurgical History:Denies: no surgeries Family History:Hypertension (Mother)kidney failure ( Father) Social/Personal History: Chief Complaintfollow-up visit lab results room 14History of Present Illness (HPI)59 YP female here for follow up visit and review of lab results. Pt states taking medications as prescribed. Pt states healthy diet and physical activities.Pt denies new concerns today. HPI performed by: Juli YANCEY, March 15, 2020 9:07 AMTransitions of Care InboundProblem ReviewProblem List was reviewed and/or updated during this visit.Medication Reconciliation & ReviewMedication List was reviewed and/or updated during this visit, including review of any comc-ipx-bmghgbh medications, herbal therapies, and/or supplements.Allergy ReviewAllergy List was reviewed and/or updated during this visit.Adult Preventive CareProvider Calculated and Reviewed all Clinical Protocols for patient today. Labs/Meds/Other Counseling- Nutrition and Physical Activity:BMI Interpretation: Overweight (03/15/2020) Counseling: Done (03/15/2020) Physical Activity: Done (03/15/2020)Review of Systems General: Denies loss of appetite, chills, dizziness, fatigue, fever, continued fever, headache, feeling ill, sweats, night sweats, sleep disturbances, weight loss. Eyes: Denies blurring of vision, double vision, irritation, discharge, vision loss, eye pain, eye swelling, droopy eyelid, sensitivity to light, redness, itching. Ears/Nose/Throat: Denies earache, ear discharge, ringing in ears, decreased hearing, nasal congestion, nosebleeds, runny nose, sore throat, hoarseness, difficulty swallowing, dry mouth, tooth pain, bleeding gums, swollen glands. Cardiovascular: Denies chest pain, palpitations, feeling faint, trouble breathing w/exertion, SOB upon lying down, SOB at night, peripheral edema, elevated blood pressure, decreased heart rate. Respiratory: Denies cough, difficulty breathing, shortness of breath, excessive sputum, coughing up blood, wheezing, chest pain. Breast: Denies discoloration, tenderness, breast changes, breast lump, nipple discharge. Gastrointestinal: Denies nausea, vomiting, diarrhea, constipation. Genitourinary: Denies urinary incontinence, pain with urination, burning with urination, urinary frequency, urinary hesitancy, urinary urgency, urinary urgency at night, incomplete emptying, blood in urine. Musculoskeletal: Denies back pain, joint pain, leg pain, other pain-see comments, joint swelling, body aches, muscle aches, muscle cramps, muscle weakness, stiffness, recent injury. Skin: Denies rash, hives, redness, itching, dryness, nail changes, suspicious lesions, athlete's foot, rash on palms, rash on bottom of feet. Neurologic: Denies muscle impairment, weakness, numbness/tingling, seizures, slurred speech, feeling faint, tremors, vertigo, paralysis on one side, paralysis on both sides. Psychiatric: Denies depression, anxiety, memory loss, mental disturbance, suicidal ideation, homicidal ideation, hallucinations, paranoia, feeling stressed, hearing voices. Endocrine: Denies cold intolerance, heat intolerance, excessive thirst, excessive hunger, excessive urination, weight loss, weight gain. Physical ExamGeneral Appearance: well nourished, well hydrated, no acute distressEyes, External: conjunctivae and lids normal, EOMIRespiratory, Auscultation: clear to auscultation bilaterally; no rales, rhonchi, or wheezesRespiratory, Effort: no intercostal retractions or use of accessory musclesCardiovascular, Auscultation: S1, S2 audible; no murmur, rub, or gallop; RRRPeripheral Circulation: no clubbing, cyanosis, edema, or varicositiesAbdomen: soft, non-tender, no masses, bowel sounds normalGait & Station: normalSkin, Inspection: no rashes, lesions, or ulcerationsOrientation: oriented to time, place, and personMood & Affect: no depression, anxiety, or agitationJudgment & Insight: intactCare Management Plan Transitions of CareInboundRate Your HealthIn general, would you say your health is? Very GoodAssessment & Plan Problems:Assessed:Prediabetes (KYZ23-W35.03) Assessment: Instructions: Your HGA1c is 5.7Please continue lifestyle changes to include healthy diet and physical activities. Please try to limit sugars and carbohydrates in your diet.Person consulting for explanation of examination or test findings (ICD-V65.8) (NTQ73-J82.2) Assessment: Instructions: We have reviewed your lab results with you today. Your lab results are unremarkable except for HGA1c of 5.7 which indicates prediabetes. cholesterol was also elevated with your LDL at 139, trending upPlease continue lifestyle changes to include healthy diet and physical activities. Please try to limit sugars, carbohydrates, sodium and fats in your diet. Please try to limit / avoid processed foods.Health Screening (ICD-V70.0) (XAL90-R67.9) Assessment: Inst ructions: lab results reviewed with you today. Will recheck fasting labs in three months. Please fast for 8-10 hours prior to having labs drawn.Hyperlipidemia, unspecified (ETV55-A84.5) Assessment: Instructions: Please continue lifestyle changes to include healthy diet and physical activities. Please try to limit sugars and carbohydrates and fats in your diet.Please try to avoid processed foods. Please try to maintain adequate fluid intake to include 6-8 glasses of water daily.Assessment not SavedVaginitis (ZHX57-I50.0): Patient Instructions/Care Plan: Prediabetes: Your HGA1c is 5.7Please continue lifestyle changes to include healthy diet and physical activities. Please try to limit sugars and carbohydrates in your diet.Person consulting for explanation of examination or test findings: We have reviewed your lab results with you today. Your lab results are unremarkable except for HGA1c of 5.7 which indicates prediabetes. cholesterol was also elevated with your LDL at 139, trending upPlease continue lifestyle changes to include healthy diet and physical activities. Please try to limit sugars, carbohydrates, sodium and fats in your diet. Please try to limit / avoid processed foods.Health Sc reening: lab results reviewed with you today. Will recheck fasting labs in three months. Please fast for 8-10 hours prior to having labs drawn.Hyperlipidemia- unspecified: Please continue lifestyle changes to include healthy diet and physical activities. Please try to limit sugars and carbohydrates and fats in your diet.Please try to avoid processed foods. Please try to maintain adequate fluid intake to include 6-8 glasses of water daily. Plan developed in collaboration with patient and/or familyMedications:TRIAMCINOLONE ACETONIDE 0.1 % EXTERNAL CREAMVITAMIN DVITAMIN C GUMMIESFLONASE ALLERGY RELIEF 50 MCG/ACT NASAL SUSPENSIONCO-Q 10 OMEGA-3 FISH OIL ORAL TUFIHQT70+ OTC MULTIVITAMINMedication Changes:Added: * VITAMIN C GUMMIES-OTC 2 gummies once daily* VITAMIN D-one tablet once dailyTRIAMCINOLONE ACETONIDE 0.1 % EXTERNAL CREAM-apply to affected area twice daily as neededAllergies:No Known Allergies (updated 01/13/2020) Orders:COMP METABOLIC PANEL [CPT-27257] CBC W/DIFF [CPT- 03081] HgBA1c [CPT-93983] LIPID PANEL [CPT-60525] URINALYSIS [CPT-44582] Urine Culture [CPT-89944] Adult - Ofc Vst, EST, Level IV [CPT-54754] Follow-Up Return to clinic: 3 months for follow up Clinical Visit Summary Completed Name Value Range Interpretation Code Description Data Rubina rce(s) Supporting Document(s) ID Date Data Source [id number] 02/18/2020 10:15:18 AM EDT [facility] Current Problems: Dental caries (ICD-521 .00) (FVV45-C74.9)Encounter for general adult medical examination with abnormal findings (ICD-V70.0) (ICD10- Z00.01)Hyperlipidemia, unspecified (GGN55-B29.5)Person consulting for explanation of examination or test findings (ICD-V65.8) (ZHS26-Y73.2)Prediabetes (ZUM68-D37.03)Health Screening (ICD-V70.0) (VRV27-R64.9)Vaginitis (ICD-616.11) (VFL39-L39.0)Acute upper respiratory infection, unspecified (ICD10- J06.9)Allergic rhinitis, unspecified (TNS87-N66.9)Encounter for general adult medical examination without abnormal findings (VWE36-Y96.00)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)Heel pain, left (ICD-729.5) (ICD10- M79.672)Sprain of unspecified ligament of left ankle, initial encounter (ICD10- S93.402A)Other circadian rhythm sleep disorder (CTJ82-I37.29)Screening for malignant neoplasms of the cervix (ICD-V76.2) (HRQ48-F01.4)C/O - cough (ICD- 786.2) (OHD89-Y23)Acute tonsillitis, unspecified (SLE21-F68.90)Screening for colon cancer (ICD-V76.51) (TSU97-Q44.11)Screening for malignant neoplasm of breast (QBE25-Z72.39)Encounter for screening for lipoid disorders (ICD-V77.91) (KHU16-R86.220)Current Medications: FLONASE ALLERGY RELIEF 50 MCG/ACT NASAL SUSPENSION (FLUTICASONE PROPIONATE) 2 sprays each nostril once a day; Route: NASALCO-Q 10 OMEGA-3 FISH OIL ORAL CAPSULE (COENZYME F35-JYYV OIL-VIT E) take 2 tabs po qd; Route: ORAL* 50+ OTC MULTIVITAMIN Dental Chart: Procedures:Type - CDT Code - Description B - (D0140) Limited oral evaluation - problem focused on Tooth # 9 (Performed by Miguel Dimas DDS) B - (D2940) Sedative filling on Tooth # 9 on Tooth Surface MLIF (Performed by Miguel Dimas DDS) B - (D0220) Intraoral, periapical, first radiographic image on Tooth # 9 (Performed by Miguel Dimas DDS) Chart Notes:syed (Feb 18 2020 11:50AM): CC: " my moms tooth hurts her when she drinks hot or cold"HPI: a few monthsPain Lvl: patietns daughter states that there is only pain when patient drinks something hot or coldRMH (-) per daughter that translated for patientAllergies; NKDABP: 123/70Temperature: 97.8 and passed covid screening questionsPA taken-Dexis #9Exam reveals: loose anabaptist with decay underneath on tooth #9. Pts daughter states that [facility] has done a pre auth for a CRN but patient does not want to go back.pt. was cooperativeDX: caries with loose restorationAnesthesia: 20% Benzocaine topical, .5 carp 4% Septocaine w/ 1:100,000 epi (Upper anterior) anabaptist disloged with highspeed bur tooth #9, and spoon used to remove partical decay. Calcimal placed and light cured Eq uia forte placed,adjusted, and polished.Plan: advised best TX would be extraction of remaining teeth on upper arch and a full upper denture. A CRN also can been now but a RCT may be needed.Additional PPE requirements due to COVID-19 in the dental setting, N95, surgical mask, hair covering, gown Pt was cooperative.NV: possiable extraction pt needed to decide what TX she would likeMiguel Dimas DDS by seyd (02/18/2020 11:50 AM): Tooth Notes and Watches: Assessment & Plan Problems:Added: Dental caries (ICD-521.00) (ICD10- K02.9)Medications:FLONASE ALLERGY RELIEF 50 MCG/ACT NASAL SUSPENSIONCO-Q 10 OMEGA-3 FISH OIL ORAL [id number]+ OTC MULTIVITAMINAllergies:No Known Allergies (updated 01/13/2020) Name Value Range Interpretation Code Description Data Rubina rce(s) Supporting Document(s) ID Date Data Source [id number] 02/15/2020 09:22:13 AM EDT [facility] Labs In-House Urine TestsDate/Time Colle cted: February 15, 2020 8:45 AMTest Result Reference Range Normal ValuePing Calderón, February 15, 2020 9:23 AMBlood TestsDate/Time Collected: February 15, 2020 8:40 AMTest Result Reference Range Normal ValueComments: blood draw done in office, taken from left ac, tolerated well.Ping Calderón, February 15, 2020 9:23 AMAssessment & Plan Orders:[id number] Vst-Est Level I [CPT-36565] 91287 - Venipuncture [CPT-11076] Name Value Range Interpretation Code Description Data Rubina rce(s) Supporting Document(s) ID Date Data Source [id number] 02/15/2020 08:45:00 AM EDT [facility] Name Value Range Interpretation Code Description Data Rubina rce(s) Supporting Document(s) APPEARANCE U CLEAR CLEAR N [facility] SPEC GR URIN 1.005 1.002-1.035 N [facility] UA COLOR STRAW YELLOW N [facility] ID Date Data Source [id number] 02/15/2020 08:40:00 AM EDT [facility] Name Value Range Interpretation Code Description Data Rubina rce(s) Supporting Document(s) BG FASTING 83 mg/dL 70-100 N [facility] T4, FREE 0.98 ng/dL 0.76-1.46 N [facility] TSH 0.431 microintl units/mL 0.358-3.[address] [facility] VIT D25 TOT 37.9 ng/mL 30.0-100.0 N [facility] Fa [facility] ID Date Data Source [id number] 02/15/2020 08:40:00 AM EDT [facility] Name Value Range Interpretation Code Description Data Rubina rce(s) Supporting Document(s) HGBA1C 5.7 % N [facility] ID Date Data Source [id number] 02/15/2020 08:40:00 AM EDT [facility] Name Value Range Interpretation Code Description Data Rubina rce(s) Supporting Document(s) HCT 38.6 % 36.0-47.0 N [facility] HGB 12.8 g/dL 12.0-15.5 N [facility] MCH 33.2 G/DL pg 32.0-36.5 N [facility] MCHC 30.0 PG % 27.0-33.0 N [facility] PLATELETS 265 10 10*3/mm3 150-450 N [facility] RBC 4.27 10 10*6/mm3 4.00-5.40 N [facility] RDW 11.8 % 11.5-14.5 N [facility] WBC TOTAL 5.9 4.0-10.0 N [facility] ID Date Data Source [id number] 01/13/2020 08:30:19 AM EDT [facility] Measurements & CalculationsHeight: 61 inches (5 ft. 1 in.) 154.94 cm Weight: 130 pounds 2 oz. 59.15 kg Body Mass Index (BMI): 24.68BMI Interpretation: Healthy WeightBody Surface Area (BSA): 1.58Weight Management Education Done (Nutrition/Physical Activity)Vital SignsTemperature: 98.1F 36.72C tympanic Pulse Rate: 80 beats/minuteRespiratory Rate: 14 respirations/minuteBlood Pressure: 128/79 right arm sitting automaticO2 Saturation: 97% room air sittingVital Signs performed by: Mariam Oleary LPN, January 13, 2020 8:32 AMVital Signs performed by: Mariam Oleary LPN, January 13, 2020 8:32 AMInitial Intake Information From: daughterRoom #: 9Infectious Disease / Travel ScreeningRecent travel for you or any close contacts? NoHave you had any close contact with anyone diagnosed with or under investigation for COVID-19 (coronavirus)? NoFever? NoRespiratory symptoms: cough, cold, congestion, shortness of breath, difficulty breathing? NoLoss of smell? NoLoss of taste? NoSmoking, Tobacco, Vaping or Smoke Exposure StatusSmoke Status: never smokerTobacco Use: NoDo you vape? NoPassive Smoke Exposure: NoMenstrual HistoryAny possibility of ? NoComments: MenopauseHealthcare HistorySince your last office visit...Have you been admitted to the hospital? NoHave you been to an emergency room (ER) or urgent care clinic? NoHave you seen another healthcare provider? Yes - Urology Have you seen a dentist? Yes - [facility] Intake performed by: Mariam Oleary LPN, January 13, 2020 8:33 AMRate Your HealthIn general, would you say your health is? ExcellentPain AssessmentAre you currently having any pain which... You would like your provider to address? No Affects your activity level? NoDepression Screening - PHQ-2Over the last two weeks, have you... Had little interest or pleasure in doing things? Not at all Been feeling down, depressed, or hopeless? Not at all PHQ-2 Score: 0Anxiety Screening - DUYEN-2Over the last two weeks, have you been... Feeling nervous, anxious, or on edge? Not at all Unable to stop or control worrying? Not at all DUYEN-2 Score: 0Food InsecurityWithin the past year...Did you worry whether your food would run out before you got money to buy more? NoWas there a time when the food you bought didn't last and you didn't have money to get more? NoPRAPARE Sociodemographic Characteristics Race: Ethnicity: Not or Preferred Language: EnglishFamily and Home Address: [address] [place] [address] [place] [address] What is your housing situation today? I have housing Are you worried about losing your housing? NoMoney and Resources In the past year, have you or any family members you live with been unable to get any of the following when it was really needed? Denies Insecurity: food, utilities, clothing, children's aide, phone, legal services, otherWithin the past year did you worry whether your food would run out before you got money to buy more? NoWithin the past year was there a time when the food you bought didn't last and you didn't have money to get more? NoSocial and Emotional Health How often do you see or talk to people that you care about and feel close to? More than 5 times a week How stressed are you? Not at allAdditional Optional Domains Do you feel physically and emotionally safe where you live? Yes In the past year, have you been afraid of a partner, ex- partner? NoScreening, Brief Intervention, & Referral to Treatment (SBIRT)Pre- Screening Questions How many times have you have 4 or more drinks in a day? 0How many times have you used an illegal drug or used a prescription medication for a non-medical reason? 0Performed by: Mariam Oleary LPN, January 13, 2020 8:38 AMPatient History Medical History:high cholesterolhypertensionSurgical History:Family History:Social/Personal History: Chief ComplaintAnnual PE room 9History of Present Illness (HPI)59 yo female here today for annual physical. Pt states heal thy diet and physical activities. Pt states no medications except Co- 10 omega 3 fish oil. Pt states doing well. Pt denies chest pain , Pt denies dizziness.Pt denies SOB. Pt denies anxiety. Pt denies depression. Pt denies smoking. Pt denies alcoholism. Pt denies illicit drug use. Pt denies any needs at this time. HPI performed by: Juli YANCEY, January 13, 2020 9:12 AMTransitions of Care InboundProblem ReviewProblem List was reviewed and/or updated during this visit.Medication Reconciliation & ReviewMedication List was reviewed and/or updated during this visit, including review of any micm-dcb-ebbsuce medications, herbal therapies, and/or supplements.Allergy ReviewAllergy List was reviewed and/or updated during this visit. Patient has no known allergies.Adult Preventive CareProvider Calculated and Reviewed all Clinical Protocols for patient today. Labs/Meds/Other Counseling-Nutrition and Physical Activity:BMI Interpretation: Healthy Weight (01/13/2020) Counseling: Done (01/13/2020) Physical Activity: Done (01/13/2020)Review of Systems General: Denies loss of appetite, chills, dizziness, fatigue, fever, continued fever, headache, feeling ill, sweats, night sweats, sleep disturbances, weight loss. Eyes: Denies blurring of vision, double vision, irritation, discharge, vision loss, eye pain, eye swelling, droopy eyelid, sensitivity to light, redness, itching. Ears/Nose/Throat: Denies earache, ear discharge, ringing in ears, decreased hearing, nasal congestion, nosebleeds, runny nose, sore throat, hoarseness, difficulty swallowing, dry mouth, tooth pain, bleeding gums, swollen glands. Cardiovascular: Denies chest pain, palpitations, feeling faint, trouble breathing w/exertion, SOB upon lying down, SOB at night, peripheral edema, elevated blood pressure, decreased heart rate. Respiratory: Denies cough, difficulty breathing, shortness of breath, excessive sputum, coughing up blood, wheezing, chest pain. Breast: Denies discoloration, tenderness, breast changes, breast lump, nipple discharge. Gastrointestinal: Denies nausea, vomiting, bleeding, burning, itching, irritation, cramps, diarrhea, constipation. Genitourinary: Denies urinary incontinence, pain with urination, burning with urination, urinary frequency, urinary hesitancy, urinary urgency, urinary urgency at night, incomplete emptying, blood in urine, pelvic pain. Musculoskeletal: Denies back pain, joint pain, leg pain, other pain-see comments, joint swelling, body aches, muscle aches, muscle cramps, muscle weakness, stiffness, recent injury. Skin: Denies rash, hives, redness, itching, dryness, nail changes, suspicious lesions, athlete's foot, rash on palms, rash on bottom of feet. Neurologic: Denies muscle impairment, weakness, numbness/tingling, seizures, slurred speech, feeling faint, tremors, vertigo, paralysis on one side, paralysis on both sides. Psychiatric: Denies depression, anxiety, memory loss, mental disturbance, suicidal ideation, homicidal ideation, hallucinations, paranoia, feeling stressed, hearing voices. Endocrine: Denies cold intolerance, heat intolerance, excessive thirst, excessive hunger, excessive urination, weight loss, weight gain. Heme/Lymphatic: Denies abnormal bruising, bleeding, enlarged lymph nodes. Physical ExamGeneral Appearance: well nourished, well hydrated, no acute distressEyes, External: conjunctivae and lids normal, EOMIRespiratory, Auscultation: clear to auscultation bilaterally; no rales, rhonchi, or wheezesRespiratory, Effort: no intercostal retractions or use of accessory musclesCardiovascular, Auscultation: S1, S2 audible; no murmur, rub, or gallop; RRRPeripheral Circulation: no clubbing, cyanosis, edema, or varicositiesAbdomen: soft, non-tender, no masses, bowel sounds normalGait & Station: normalSkin, Inspection: no rashes, lesions, or ulcerationsOrientation: oriented to time, place, and personMood & Affect: no depression, anxiety, or agitationJudgment & Insight: intactCare Management Plan Transitions of CareInboundRate Your HealthIn general, would you say your health is? ExcellentAssessment & Plan Problems:Added: Encounter for general adult medical examination with abnormal findings (ICD-V70.0) (GKP96-S02.01) Assessment: I nstructions: You have had your annual physical exam done today. Please continue lifestyle changes to include healthy diet and physical activities. Please try to limit sugars and carbohydrates and fats in your diet.Please try to avoid processed foods. Please try to maintain adequate fluid intake to include 6-8 glasses of water daily.Assessed:Hyperlipidemia, unspecified (CUL16-Q32.5) Assessment: Instructions: Please continue lifestyle changes to include healthy diet and physical activities. Please try to limit sugars and carbohydrates and fats in your diet.Please try to avoid processed foods. Please try to maintain adequate fluid intake to include 6-8 glasses of water daily.Prediabetes (VXW04-L98.03) Assessment: Instructions: Please continue lifestyle changes to include healthy diet and physical activities. Please try to limit sugars and carbohydrates in your diet.Health Screening (ICD-V70.0) (ICD10- Z13.9) Assessment: Instructions: Please return to have fast labs done as scheduled.Assessment not Saved Health Screening (MWV32-C12.9): Patient Instructions/Care Plan: Hyperlipidemia- unspecified: Please continue lifestyle changes to include healthy diet and physical activities. Please try to limit sugars and carbohydrates and fats in your diet.Please try to avoid processed foods. Please try to maintain adequate fluid intake to include 6-8 glasses of water daily.Prediabetes: Please continue lifestyle changes to include healthy diet and physical activities. Please try to limit sugars and carbohydrates in your diet.Health Screening: Please return to have fast labs done as sched uled.Encounter for general adult medical examination with abnormal findings: You have had your annual physical exam done today. Please continue lifestyle changes to include healthy diet and physical activities. Please try to limit sugars and carbohydrates and fats in your diet.Please try to avoid processed foods. Please try to maintain adequate fluid intake to include 6-8 glasses of water daily.--- -------Plan developed in collaboration with patient and/or familyMedications:FLONASE ALLERGY RELIEF 50 MCG/ACT NASAL SUSPENSIONCO-Q 10 OMEGA-3 FISH OIL ORAL [id number]+ OTC MULTIVITAMINMedication Changes:R emoved:FLUCONAZOLE 150 MG ORAL TABLET-1 tab by mouth now and repeat in 3 days if symptoms persist Qty: 2[Tablet] Refills: 0, ALBUTEROL SULFATE HFA 108 (90 BASE) MCG/ACT INHALATION AEROSOL SOLUTION-2 puffs inhaled Q4H as needed cough Qty: 1[Inhaler] Refills: 1Allergies:No Known Allergies (updated 01/13/2020) Orders:COMP METABOLIC PANEL [CPT-86326] CBC W/DIFF [CPT-63414] HgBA1c [CPT- 18705] LIPID PANEL [CPT-43963] TSH [CPT-40800] T-4 free [CPT-86181] Vitamin D 250H Unspecified [CPT-02252] URINALYSIS [CPT-33378] Adult - Ofc Vst, EST, Level IV [CPT-70093] Follow-Up Return to clinic: 4-6 weeks for follow up Clinical Visit Summary CompletedMedications:Cancelled ALBUTEROL SULFATE HFA 108 (90 BASE) MCG/ACT INHALATION AEROSOL SOLUTION (ALBUTEROL SULFATE) 2 puffs inhaled Q4H as needed cough #1[Inhaler] x 1 Route:INHALATION Entered by: Mariam Oleary LPN Authorized by: Liz YANCEY Method used: Electronically to [facility] ([place]) [id number] [place] [address] RxID: [id number] FLUCONAZOLE 150 MG ORAL TABLET (FLUCONAZOLE) 1 tab by mouth now and repeat in 3 days if symptoms persist #2[Tablet] x 0 Route:ORAL Entered by: Mariam Oleary LPN Authorized by: Jade diaz signed by: Juli YANCEY on 01/13/2020 Method used: Electronically to [facility] ([place]) [id number] [place] [id number] RxID: [id number] signed by Juli YANCEY on 01/17/2020 at 11:58 PM Name Value Range Interpretation Code Description Data Rubina rce(s) Supporting Document(s) ID Date Data Source [id number] 11/23/2019 08:44:41 AM EDT [facility] Initial Intake Information from: melody rSmoking, Tobacco, Vaping or Smoke Exposure StatusSmoke Status: never smokerTobacco Use: NoDo you vape? NoPassive Smoke Exposure: NoMenstrual HistoryAny possibility of ? NoHealthcare HistorySince your last office visit...Have you been admitted to the hospital? NoHave you been to an emergency room (ER) or urgent care clinic? No - [facility] ER- kidney infection Emergency room (ER) or urgent care date reported today: 09/18/2019Have you seen another healthcare provider? No [place] office her PrimaryHave you seen a dentist? Yes - [facility] exam date reported today: 12/2017Intake performed by: Ada Trujillo MA, November 23, 2019 8:45 AMRate Your HealthIn general, would you say your health is? GoodPain AssessmentAre you currently having any pain which... You would like your provider to address? No Affects your activity level? NoDepression Screening - PHQ-2Over the last two weeks, have you... Had little interest or pleasure in doing things? Not at all Been feeling down, depressed, or hopeless? Not at all PHQ-2 Score: 0Anxiety Screening - DUYEN-2Over the last two weeks, have you been... Feeling nervous, anxious, or on edge? Not at all Unable to stop or control worrying? Not at all DUYEN-2 Score: 0Infectious Disease / Travel ScreeningRecent travel for you or any close contacts? NoHave you had any close contact with anyone diagnosed with or under investigation for COVID-19 (coronavirus)? NoHave you had any of the following symptoms recently? Fever? NoRespiratory symptoms: cough, cold, congestion, shortness of breath, difficulty breathing? NoScreening, Brief Intervention, & Referral to Treatment (SBIRT)Pre-Screening Questions How many times have you have 4 or more drinks in a day? 0How many times have you used an illegal drug or used a prescription medication for a non-medical reason? 0Performed by: Ada Trujillo MA, November 23, 2019 8:45 AMPatient History Medical History:high cholesterolhypertensionSurgical History:Family History:Social/Personal History: Chief ComplaintlabsHistory of Present Illness (HPI)This visit was conducted via telephone. Juli YANCEY has received verbal consent from the patient/guardian to conduct this visit via telehealth. The patient has been made aware that they have the right to refuse telehealth; of my location and the security of the telehealth software; any other parties present in the session; and that they have a right to select another provider if chosen for a face to face visit.59 yo femaleLab results discussed at todays visit with patient. Pt ve rbalized no other concerns. Pt agreed to continue medications as prescribed, a healthy diet and physical activities. Pt is a non smoker. Pt denies alcoholism. Pt denies illicit drug use. Pt denies anxiety or depression at this time. Telephone converstion 12 minutes.HPI performed by: Juli YANCEY, November 23, 2019 10:15 AMTransitions of Care InboundProblem ReviewProblem List was reviewed and/or updated during this visit.Medication Reconciliation & ReviewMedication List was reviewed and/or updated during this visit, including review of any ffro-[id number]-[id number] medications, herbal therapies, and/or supplements.Allergy ReviewAllergy List was reviewed and/or updated during this visit.Provider Calculated and Reviewed all Clinical Protocols for patient today. Review of Systems General: Denies loss of appetite, chills, dizziness, fatigue, fever, continued fever, headache, feeling ill, sweats, night sweats, sleep disturbances, weight loss. Eyes: Denies blurring of vision, double vision, irritation, discharge, vision loss, eye pain, eye swelling, droopy eyelid, sensitivity to light, redness, itching. Ears/Nose/Throat: Denies earache, ear discharge, ringing in ears, decreased hearing, nasal congestion, nosebleeds, runny nose, sore throat, hoarseness, difficulty swallowing, dry mouth, tooth pain, bleeding gums, swollen glands. Cardiovascular: Denies chest pain, palpitations, feeling faint, trouble breathing w/exertion, SOB upon lying down, SOB at night, peripheral edema, elevated blood pressure, decreased heart rate. Respiratory: Denies cough, difficulty breathing, shortness of breath, excessive sputum, coughing up blood, wheezing, chest pain. Breast: Denies discoloration, tenderness, breast changes, breast lump, nipple discharge. Gastrointestinal: Denies nausea, vomiting, bleeding, burning, itching, irritation, cramps, diarrhea, constipation. Genitourinary: Denies urinary incontinence, pain with urination, burning with urination, urinary frequency, urinary hesitancy, urinary urgency, urinary urgency at night, incomplete emptying, blood in urine, pelvic pain, abnormal vaginal bleeding, vaginal discharge. Musculoskeletal: Denies back pain, joint pain, leg pain, other pain-see comments, joint swelling, body aches, muscle aches, muscle cramps, muscle weakness, stiffness, recent injury. Skin: Denies rash, hives, redness, itching, dryness, nail changes, suspicious lesions, athlete's foot, rash on palms, rash on bottom of feet. Neurologic: Denies muscle impairment, weakness, numbness/tingling, seizures, slurred speech, feeling faint, tremors, vertigo, paralysis on one side, paralysis on both sides. Psychiatric: Denies depression, anxiety, memory loss, mental disturbance, suicidal ideation, homicidal ideation, hallucinations, paranoia, feeling stressed, hearing voices. Endocrine: Denies cold intolerance, heat intolerance, excessive thirst, excessive hunger, excessive urination, weight loss, weight gain. Physical ExamJudgment & Insight: intactCare Management Plan Transitions of CareInboundRate Your HealthIn general, would you say your health is? GoodAssessment & Plan Problems:Added: Prediabetes (KTN47-S48.03) Assessment: Instructions: Recent lab results indicates prediabetes. Please start lifestyle changes to include healthy diet and physical activities. Please try to limit sugars and carbohydrates in your diet.Person consulting for explanation of examination or test findings (ICD-V65.8) (IGN71-D77.2) Assessment: Instructions: We have reviewed your lab results with you today.Person consulting for explanation of examination or test findings (ICD-V65.8) (TNR60-X80.2) Assessment: Instructions: [facility] lab results are unremarkable except for HGA1c of 5.8 which indicates prediabetes. cholesterol was also elevated with your LDL at 122. Please continue lifestyle changes to include healthy diet and physical activities. Please try to limit sugars, carbohydrates, sodium and fats in your diet. Please try to limit / avoid processed foods.Hyperlipidemia, unspecified (NXU92-W24.5) Assessment: Instructions: Please start lifestyle changes to include healthy diet and physical activities. Please try to limit sugars and carbohydrates and fats in your diet.Please try to avoid processed foods. Please try to maintain adequate fluid intake to include 6-8 glasses of water daily.Assessed:Health Screening (ICD-V70.0) (ZZS90-I88.9) Assessment: Instructions: Lab results reviewed with you today.Patient Instructions/Care Plan: Health Screening: Lab results reviewed with you today.Prediabetes: Recent lab results indicates prediabetes. Please start lifestyle changes to include healthy diet and physical activities. Please try to limit sugars and carbohydrates in your diet.Person consulting for explanation of examination or test findings: We have reviewed your lab results with you today.Person consulting for explanation of examination or test findings: [facility] lab results are unremarkable except for HGA1c of 5.8 which indicates prediabetes. cholesterol was also elevated with your LDL at 122. Please continue lifestyle changes to include healthy diet and physical activities. Please try to limit sugars, carbohydrates, sodium and fats in your diet. Please try to limit / avoid processed foods.Hyperlipidemia- unspecified: Please start lifestyle changes to include healthy diet and physical activities. Please try to limit sugars and carbohydrates and fats in your diet.Please try to avoid processed foods. Please try to maintain adequate fluid intake to include 6-8 glasses of water daily. Plan developed in collaboration with patient and/or familyMedications:FLUCONAZOLE 150 MG ORAL TABLETALBUTEROL SULFATE HFA 108 (90 BASE) MCG/ACT INHALATION AEROSOL SOLUTIONFLONASE ALLERGY RELIEF 50 MCG/ACT NASAL SUSPENSIONCO-Q 10 OMEGA-3 FISH OIL ORAL ESDAEDE23+ OTC M ULTIVITAMINAllergies:No Known Allergies (updated 09/24/2019) Orders:COMP METABOLIC PANEL [CPT-33417] CBC W/DIFF [CPT-12129] HgBA1c [CPT-34544] LIPID PANEL [CPT-96919] Telephone E&M 11-20 min Medical Discussion [CPT-13166] Follow- Up Return to clinic: 3 months for follow up. Name Value Range Interpretation Code Description Data Rubina rce(s) Supporting Document(s) ID Date Data Source [id number] 11/16/2019 08:54:38 AM EDT [facility] In-House Blood TestsDate/Time Colle cted: November 16, 2019 8:54 AMTest Result Reference Range Normal ValueComments: blood draw done in offcie done in the right ac tolerated well Karsten Issa MA, November 16, 2019 8:54 AMAssessment & Plan Orders:[id number] Vst-Est Level I [CPT-94490] 92581 - Venipuncture [CPT-87124] Name Value Range Interpretation Code Description Data Rubina rce(s) Supporting Document(s) ID Date Data Source [id number] 11/16/2019 08:45:00 AM EDT [facility] Name Value Range Interpretation Code Description Data Rubina rce(s) Supporting Document(s) HGBA1C 5.8 % [facility] ID Date Data Source [id number] 11/16/2019 08:45:00 AM EDT [facility] Name Value Range Interpretation Code Description Data Rubina rce(s) Supporting Document(s) HCT 40.0 % 36.0-47.0 [facility] HGB 13.5 g/dL 12.0-15.5 N [facility] MCH 33.8 G/DL pg 32.0-36.5 N [facility] MCHC 30.3 PG % 27.0-33.0 N [facility] PLATELETS 259 10 10*3/mm3 150-450 N [facility] RBC 4.45 10 10*6/mm3 4.00-5.40 N [facility] RDW 12.1 % 11.5-14.5 N [facility] WBC TOTAL 5.3 4.0-10.0 N [facility] ID Date Data Source [id number] 11/16/2019 08:45:00 AM EDT [facility] Name Value Range Interpretation Code Description Data Rubina rce(s) Supporting Document(s) BG FASTING 88 mg/dL 70-100 [facility] T4, FREE 1.01 ng/dL 0.76-1.46 N [facility] TSH 0.541 microintl units/mL 0.358-3.740 N [facility] VIT D25 TOT 29.4 ng/mL 30.0-100.0 L [facility] ID Date Data Source [id number] 09/24/2019 11:12:46 AM EST [facility] Measurements & CalculationsHeight: 61 inches (5 ft. 1 in.) 154.94 cm Weight: 133 pounds 8 oz. 60.68 kg Body Mass Index (BMI): 25.32BMI Interpretation: OverweightBody Surface Area (BSA): 1.59Weight Management Education Done (Nutrition/Physical Activity)Vital SignsTemperature: 97.7F oral Pulse Rate: 85 beats/minuteRespiratory Rate: 16 respirations/minuteBlood Pressure: 128/79 left arm sitting automaticO2 Saturation: 98% room airVital Signs performed by: Yony Sterling LPN, September 24, 2019 11:33 AMInitial Intake Information from: patientRoom #: 11Infectious Disease- Travel Have you or your sexual partner travelled outside of the country recently? NoSmoking, Tobacco or Smoke Exposure StatusSmoke Status: never smokerTobacco Use: NoPassive Smoke Exposure: NoMenstrual HistoryAny possibility of ? NoComments: Menopause Healthcare HistorySince your last office visit...Have you been admitted to the hospital? NoHave you been to an emergency room (ER) or urgent care clinic? Yes - [facility] ER- kidney infection Emergency room (ER) or urgent care date reported today: 09/18/2019Have you seen another healthcare provider? NoHave you seen a dentist? Yes - [facility]HDIntake performed by: Yony Sterling LPN, September 24, 2019 11:25 AMRate Your HealthIn general, would you say your health is? GoodPain AssessmentAre you currently having any pain which... You would like your provider to address? Yes Affects your activity level? YesDepression Screening - PHQ-2Over the last two weeks, have you... Had little interest or pleasure in doing things? Not at all Been feeling down, depressed, or hopeless? Not at all PHQ-2 Score: 0Anxiety Screening - DUYEN-2Over the last two weeks, have you been... Feeling nervous, anxious, or on edge? Not at all Unable to stop or control worrying? Not at all DUYEN-2 Score: 0Infectious Disease- Travel Cont. Any possibility of ? NoPain AssessmentPain ScaleNumeric Rating Scale: 3 / 10Location: abdomen, back Duration: comes and goesFrequency: OccasionallyCharacter/Quality: aching. cramping Is the pain radiating? NoScreening, Brief Intervention, & Referral to Treatment (SBIRT)Pre-Screening Questions How many times have you have 4 or more drinks in a day? 0How many times have you used an illegal drug or used a prescription medication for a non- medical reason? 0Performed by: Yony Sterling LPN, September 24, 2019 11:20 AMPatient History Medical History:high cholesterolhypertensionSurgical History:Family History:Social/Personal History: Smoking Status: never smokerChief ComplaintHosp d/c kidney infection, referral to Dr. Mendez Urology History of Present Illness (HPI)Telemedicine visit with patient's location at [facility] and provider's location at offsite office. Additional person(s)participating in the visit: her daughter who translates for her. Pt here today for ER visit for kidney infection on 09/[address] [facility]. CT abd- no renal or bladder stone, no hydronephrosis, no mass, liver spleen GB unremarkable. CXR- mild hypoinflation, minor basilar fibrotic atelactic changes. Labs show WBC 11.6, Hgb 11.9. Urine cult- shows E. Coli and was treated with Cipro for 10 days, zofran, and K-Dur. Pt states that she feels much better, LUTS are improved and she is still taking the antibiotic for 3 more days. No fevers. Daughter requests referral to urology for recurrent UTI and LUTS symptoms. Pt also requests referral to [facility] for chronic vaginal itching and burning.Pt also c/o vaginal itchiness, burning, no discharge.HPI performed by: Jade GARRETT, September 24, 2019 11:17 AMTransitions of Care InboundProblem ReviewProblem List was reviewed and/or updated during this visit.Medication Reconciliation & ReviewMedication List was reviewed and/or updated during this visit, including review of any pegs-orv-ucnxkji medications, herbal therapies, and/or supplements.Allergy ReviewAllergy List was reviewed and/or updated during this visit. Patient has no known allergies.Adult Preventive CareProvider Calculated and Reviewed all Clinical Protocols for patient today. Labs/Meds/Other Counseling-Nutrition and Physical Activity:BMI Interpretation: Overweight (09/24/2019) Counseling: Done (09/24/2019) Physical Activity: Done (09/24/2019)Review of Systems General: Denies chills, fever, headache, feeling ill, sweats, night sweats. Genitourinary: Complains of see HPI, urinary frequency, urinary urgency, incomplete emptying, vaginal itching, genital burning, genital itching. Denies urinary incontinence, pain with urination, burning with urination, blood in urine, vaginal discharge. Physical ExamGeneral Appearance: well nourished, well hydrated, no acute distressEyes, External: conjunctivae and lids normal, EOMIHearing: grossly intactRespiratory, Effort: no intercostal retractions or use of accessory musclesGait & Station: normalOrientation: oriented to time, place, and personMood & Affect: no depression, anxiety, or agitationJudgment & Insight: intactMemory: intact for recent and remote eventsCare Management Plan Transitions of CareInboundRate Your HealthIn general, would you say your health is? GoodAssessment & Plan Problems:Added: Vaginitis (ICD-616.11) (RVW32-N93.0) Assessment: Instructions: I have entered a GYNECOLOGY referral for you today. Our referrals department will contact you with further instructions on how to set up your appt for this referral. Please call our referrals dept if you don't hear about this referral within 2 weeks. [phone] ext [phone].Your prescriptions have been sent to your preferred pharmacy electronically, please take them as prescribed and report any significant side effects. If your symptoms resolve you can cancel the [facility] referral.Vaginitis (ICD-616.11) (PBU65-T20.0) Assessment: Unable to perfom exam due to telemed visit, but this appears to be a chronic issue for pt, will tx empirically with fluconazole as she has been on abx recently and refer to [facility].Assessed:Acute cystitis with hematuria (XPG29-U41.01) Assessment: Instructions: I have entered a UROLOGY referral for you today. Our referrals department will contact you with further instructions on how to set up your appt for this referral. Please call our referrals dept if you don't hear about this referral within 2 weeks. [phone] ext [phone].Acute cystitis with hematuria (ZSG16-M35.01) Assessment: Pt requests referral to uro for chronic cystitis and LUTS and recurrent UTIs. Sypmtoms seems to have improved since ER visit.Patient Instructions/Care Plan: Acute cystitis with hematuria: I have entered a UROLOGY referral for you today. Our referrals department will contact you with further instructions on how to set up your appt for this referral. Please call our referrals dept if you don't hear about this referral within 2 weeks. [phone] ext [phone].Vaginitis: I have entered a GYNECOLOGY referral for you today. Our referrals department will contact you with further instructions on how to set up your appt for this referral. Please call our referrals dept if you don't hear about this referral within 2 weeks. [phone] ext [phone].Your prescriptions have been sent to your preferred pharmacy electronically, please take them as prescribed and report any significant side effects. If your symptoms resolve you can cancel the [facility] referral. Plan developed in collaboration with patient and/or familyMedications:FLUCONAZOLE 150 MG ORAL TABLETALBUTEROL SULFATE HFA 108 (90 BASE) MCG/ACT INHALATION AEROSOL SOLUTIONFLONASE ALLERGY RELIEF 50 MCG/ACT NASAL SUSPENSIONCO-Q 10 OMEGA-3 FISH OIL ORAL QOOAGEN59+ OTC MULTIVITAMINMedication Changes:New Prescription:FLUCONAZOLE 150 MG ORAL TABLET-1 tab by mouth now and repeat in 3 days if symptoms persist Qty: 2[Tablet] Refills: 0 Method: ElectronicRemoved:PREDNISONE 20 MG ORAL TABLET-Take 2 tabs po QD for 5 days then 1 tab po QD for 5 days, DOXYCYCLINE HYCLATE 100 MG ORAL CAPSULE-Take one tab po BID for 5 daysAllergies:No Known Allergies (updated 09/24/2019) Orders:Urology Consult [CPT-23470] [facility] [employer] [CPT-69075] Office Visit - Established, Level 3 [CPT- 04479ER] Follow-Up Return to clinic: 3 months for follow up with in person bart yu Clinical Visit Summary Completed Name Value Range Interpretation Code Description Data Rubina rce(s) Supporting Document(s) ID Date Data Source [id number] 08/24/2019 09:41:02 AM [facility] Measurements & CalculationsHeight: 61 inches (5 ft. 1 in.) 154.94 cm Weight: 131 pounds 2 oz. 59.60 kg Body Mass Index (BMI): 24.87BMI Interpretation: Healthy WeightBody Surface Area (BSA): 1.58Weight Management Education Done (Nutrition/Physical Activity)Vital SignsTemperature: 97.9F 36.61C oral Pulse Rate: 108 beats/minuteRespiratory Rate: 16 respirations/minuteBlood Pressure: 137/86 right arm sitting automaticO2 Saturation: 97% room airVital Signs performed by: Anna Cohen MA, August 24, 2019 9:41 AMInitial Intake Information from: patientRoom #: 8Infectious Disease- Travel Have you or your sexual partner travelled outside of the country recently? NoSmoking, Tobacco or Smoke Exposure StatusSmoke Status: never smokerTobacco Use: NoPassive Smoke Exposure: NoHealthcare HistorySince your last office visit...Have you been admitted to the hospital? NoHave you been to an emergency room (ER) or urgent care clinic? Yes - [facility] Emergency room (ER) or urgent care date reported today: 08/15/2019Have you seen another healthcare provider? Yes [place] office her PrimaryHave you seen a dentist? Yes [facility] reported today: 12/2017Intake performed by: Anna Cohen MA, August 24, 2019 9:45 AMRate Your HealthIn ge neral, would you say your health is? GoodPain AssessmentAre you currently having any pain which... You would like your provider to address? No Affects your activity level? NoDepression Screening - PHQ-2Over the last two weeks, have you... Had little interest or pleasure in doing things? Not at all Been feeling down, depressed, or hopeless? Not at all PHQ-2 Score: 0Anxiety Screening - DUYEN-2Over the last two weeks, have you been... Feeling nervous, anxious, or on edge? Not at all Unable to stop or control worrying? Not at all DUYEN-2 Score: 0Screening, Brief Intervention, & Referral to Treatment (SBIRT)Pre- Screening Questions How many times have you have 4 or more drinks in a day? 0How many times have you used an illegal drug or used a prescription medication for a non-medical reason? 0Performed by: Anna Cohen MA, August 24, 2019 9:46 AMPatient History Medical History:high cholesterolhypertensionSurgical History:Family History:Social/Personal History: Smoking Status: never smokerChief Complaintfollow-up visitHistory of Present Illness (HPI)Pt's daughter states she was dx with influenza on 08/15/19 at [facility]. Patient did not take Tamiflu due to the possible side effects.Pt states she has been coughing green and yellow sputum. Pt states they did a chest xray on her lungs which was negative. Pt's daughter states they did not give her anything for medication but recommended her to try Mucinex without the DM due to high BP at the time. Patient still coughing with excessive phlegm. No fevers or chills.Transitions of Care InboundProblem ReviewProblem List was reviewed and/or updated during this visit.Medication Reconciliation & ReviewMedication List was reviewed and/or updated during this visit, including review of any ghcv-tpn-zwzoqfq medications, herbal therapies, and/or supplements.Allergy ReviewAllergy List was reviewed and/or updated during this visit.Adult Preventive CareProvider Calculated and Reviewed all Clinical Protocols for patient today. Labs/Meds/Other Counseling- Nutrition and Physical Activity:BMI Interpretation: Healthy Weight (08/24/2019) Counseling: Done (08/24/2019) Physical Activity: Done (08/24/2019)Review of Systems General: Complains of headache. Denies dizziness, fatigue, fever. Ears/Nose/Throat: Complains of runny nose. Denies earache, nasal congestion. itchy throatCardiovascular: Complains of chest pain. Denies palpitations, f eeling faint. only with coughRespiratory: Complains of cough, shortness of breath, excessive sputum. Denies difficulty breathing, coughing up blood. Gastrointestinal: Denies nausea, vomiting, diarrhea. Physical ExamGeneral Appearance: well nourished, well hydrated, no acute distressEyes, External: conjunctivae and lids normal, EOMIExternal Ears: normal, no lesions or deformitiesHearing: grossly intactOtoscopy: canals clear, tympanic membranes intact, no fluid, light reflex intact bilaterallyExternal Nose: normal, no lesions or deformitiesNasal: edematous mucosa. Normal septum, and edematous turbinatesl, nares patentLips/Teeth/Gums: normal dentition, no labial, tongue or mucosal lesions, no white patches, no swelling, no caries, no gingival hypertrophy, no bleeding gumsRespiratory, Auscultation: Expiratory wheezing bilaterally with diminished lung sounds; no rales or rhonchRespiratory, Effort: no intercostal retractions or use of accessory musclesCardiovascular, Auscultation: S1, S2 audible; no murmur, rub, or gallop; RRRPeripheral Circulation: no clubbing, cyanosis, edema, or varicositiesGait & Station: normalOrientation: oriented to time, place, and personMood & Affect: no d epression, anxiety, or agitationJudgment & Insight: intactCare Management Plan Transitions of CareInboundRate Your HealthIn general, would you say your health is? GoodAssessment & Plan Problems:Added: Acute upper respiratory infection, unspecified (ZAT76-Y80.9) Assessment: Instructions: Start doxycycline 100 mg po BID for 5 days, albuterol HFA Q4H during acute symptoms then prn, and pr ednisone 40 mg QD for 5 days then 20 mg QD for 5 day; Discussed potential medication side effects. Patient verbalized understanding.Instructed patient to increase fluid intake and rest.Instructed to go to the ER if symptoms worsenAssessed:Encounter for general adult medical examination without abnormal findings (XAG48-O91.00) Assessment: Instructions: Repeat annual labs prior to next visitDiscussed healthy eating habitsPatient Instructions/Care Plan: Acute upper respiratory infection- unspecified: Start doxycycline 100 mg po BID for 5 days, albuterol HFA Q4H during acute symptoms then prn, and prednisone 40 mg QD for 5 days then 20 mg QD for 5 day; Discussed potential medication side effects. Patient verbalized understanding.Instructed patient to increase fluid intake and rest.Instructed to go to the ER if symptoms worsenEncounter for general adult medical examination without abnormal findings: Repeat annual labs prior to next visitDiscussed healthy eating habits Plan developed in ollaboration with patient and/or familyMedications:ALBUTEROL SULFATE HFA 108 (90 BASE) MCG/ACT INHALATION AEROSOL SOLUTIONPREDNISONE 20 MG ORAL TABLETDOXYCYCLINE HYCLATE 100 MG ORAL CAPSULEFLONASE ALLERGY RELIEF 50 MCG/ACT NASAL SUSPENSIONCO- Q 10 OMEGA-3 FISH OIL ORAL [id number]+ OTC MULTIVITAMINMedication Changes:Refilled:FLONASE ALLERGY RELIEF 50 MCG/ACT NASAL SUSPENSION-2 sprays each nostril once a day Qty: 1[Milliliter] Refills: 3 Method: ElectronicNew Prescription:DOXYCYCLINE HYCLATE 100 MG ORAL CAPSULE-Take one tab po BID for 5 days Qty: 10[Capsule] Refills: 0 Method: ElectronicPREDNISONE 20 MG ORAL TABLET-Take 2 tabs po QD for 5 days then 1 tab po QD for 5 days Qty: 15[Tablet] Refills: 0 Method: ElectronicALBUTEROL SULFATE HFA 108 (90 BASE) MCG/ACT INHALATION AEROSOL SOLUTION-2 puffs inhaled Q4H as needed cough Qty: 1[Inhaler] Refills: 1 Method: ElectronicAllergies:No Known Allergies (updated 12/22/2017) Orders:Adult - Ofc Vst, EST, Level III [CPT-59687] Follow-Up Return to clinic: in 3 months for follow upAdditional Follow-Up: annual vistMedications:ALBUTEROL SULFATE HFA 108 (90 BASE) MCG/ACT INHALATION AEROSOL SOLUTION (ALBUTEROL SULFATE) 2 puffs inhaled Q4H as needed cough #1[Inhaler] x 1 Route:INHALATION Entered and Authorized by: Liz YANCEY Method [facility]: [facility] ([place]) [address] [place] [address] [address] [place] [address] Note to Pharmacy: Route: INHALATION; RxID: [id number] 20 MG ORAL TABLET (PREDNISONE) Take 2 tabs po QD for 5 days then 1 tab po QD for 5 days #15[Tablet] x 0 Route:ORAL Entered and Authorized by: Liz YANCEY Method used: Electronically to [facility] ([place]) [address] [place] [address] [address] [place] [address] Note to Pharmacy: Route: ORAL; RxID: [id number] ALLERGY RELIEF 50 MCG/ACT NASAL SUSPENSION (FLUTICASONE PROPIONATE) 2 sprays each nostril once a day #1[Milliliter] x 3 Route:NASAL Entered and Authorized by: Liz YANCEY Method used: Electronically to [id number] (retail) [id number] [place] [address] Note to Pharmacy: Route: NASAL; RxID: [id number] HYCLATE 100 MG ORAL CAPSULE (DOXYCYCLINE HYCLATE) Take one tab po BID for 5 days #10[Capsule] x 0 Route:ORAL Entered and Authorized by: Liz YANCEY Method used: Electronically to [id number]* (retail) [id number] [place] [address] Note to Pharmacy: Route: ORAL; RxID: [id number] signed by Liz YANCEY on 08/24/2019 at 2:15 PM Name Value Range Interpretation Code Description Data Rubina rce(s) Supporting Document(s) Procedure Social History Code Duration Value Status Description Data Source(s ) Smoking 12/03/2019 12:00:00 AM EDT Never Smoker completed Never S rut eCW1 ([facility]) Vital Signs ID Date Data Source UNK Name Value Range Interpretation Code Description Data Source(s) Body weight 2085 [oz_av] 2085 [oz_av] DILCIA ([facility]) Systolic blood pressure 109 mm[Hg] 109 mm[Hg] A THENA ([facility]) Body mass index (BMI) [Ratio] 24.6 kg/m2 24.6 k g/m2 DILCIA ([facility]) Body height 61 [in_i] 61 [in_i] DILCIA ([facility]) Diastolic blood pressure 78 mm[Hg] 78 mm[Hg] DILCIA ([facility]) Body weight 2008 [oz_av] 2008 [oz_av] DILCIA ([facility]) Systolic blood pressure 124 mm[Hg] 124 mm[Hg] A THENA ([facility]) Body height 61 [in_i] 61 [in_i] DILCIA ([facility]) Diastolic blood pressure 72 mm[Hg] 72 mm[Hg] DILCIA ([facility]) Body weight 2114.08 [oz_av] 2114.08 [oz_av] ATH HUMBLE ([facility]) Systolic blood pressure 131 mm[Hg] 131 mm[Hg] A THENA ([facility]) Body height 61 [in_i] 61 [in_i] DILCIA ([facility]) Diastolic blood pressure 80 mm[Hg] 80 mm[Hg] DILCIA ([facility]) Body weight 2082.08 [oz_av] 2082.08 [oz_av] ATH HUMBLE ([facility]) Systolic blood pressure 128 mm[Hg] 128 mm[Hg] A THENA ([facility]) Body height 61 [in_i] 61 [in_i] DILCIA ([facility]) Diastolic blood pressure 79 mm[Hg] 79 mm[Hg] DILCIA ([facility]) Diastolic blood pressure 68 mm[Hg] 68 mm[Hg] eCW1 ([facility]) Systolic blood pressure 142 mm[Hg] 142 mm[Hg] e CW1 ([facility]) Body mass index (BMI) [Ratio] 25.39 kg/m2 25.39 kg/m2 eCW1 ([facility]) Body height 60 [in_us] 60 [in_us] eCW1 ([facility]) Body weight Measured 130 [lb_av] 130 [lb_av] eC W1 ([facility]) Diastolic blood pressure 72 mm[Hg] 72 mm[Hg] eCW1 ([facility]) Systolic blood pressure 104 mm[Hg] 104 mm[Hg] e CW1 ([facility]) Body temperature 97.0 [degF] 97.0 [degF] eCW1 ( [facility]) Respiratory rate 18 /min 18 /min eCW1 ([facility]) Heart rate 74 /min 74 /min eCW1 ([facility]) Body mass index (BMI) [Ratio] 25.19 kg/m2 25.19 kg/m2 eCW1 ([facility]) Body height 60 [in_us] 60 [in_us] eCW1 ([facility]) Body weight Measured 129 [lb_av] 129 [lb_av] eC W1 ([facility]) Diastolic blood pressure 70 mm[Hg] 70 mm[Hg] eCW1 ([facility]) Systolic blood pressure 148 mm[Hg] 148 mm[Hg] e CW1 ([facility]) Body mass index (BMI) [Ratio] 25.19 kg/m2 25.19 kg/m2 eCW1 ([facility]) Body height 60 [in_us] 60 [in_us] eCW1 ([facility]) Body weight Measured 129 [lb_av] 129 [lb_av] eC W1 ([facility]) Body weight 2136 [oz_av] 2136 [oz_av] DILCIA ([facility]) Systolic blood pressure 128 mm[Hg] 128 mm[Hg] A [facility] ([facility]) Body height 61 [in_i] 61 [in_i] DILCIA ([facility]) Diastolic blood pressure 79 mm[Hg] 79 mm[Hg] DILCIA ([facility]) Body weight 2098.08 [oz_av] 2098.08 [oz_av] ATH HUMBLE ([facility]) Systolic blood pressure 137 mm[Hg] 137 mm[Hg] A [facility] ([facility]) Body height 61 [in_i] 61 [in_i] DILCIA ([facility]) Diastolic blood pressure 86 mm[Hg] 86 mm[Hg] DILCIA ([facility]) Patient Treatment Plan of Care Planned Activity Planned Date Details Description Data Source (s) Phenazopyridine hydrochloride 200 MG Oral Tablet 11/01/2019 12:00:0 0 AM EDT eCW1 ([facility]) Triamcinolone Acetonide 0.001 MG/MG Topical Ointment 12:00:00 AM EST eCW1 ([facility]) Triamcinolone Acetonide 0.001 MG/MG Topical Ointment 12:00:00 AM EST eCW1 ([facility]) Triamcinolone Acetonide 0.001 MG/MG Topical Ointment 12:00:00 AM EST eCW1 ([facility]) Triamcinolone Acetonide 0.001 MG/MG Topical Ointment DILCIA ([facility]) Prednisone 20 MG Oral Tablet DILCIA ([facility]) Ondansetron 4 MG Oral Tablet DILCIA ([facility]) Fluconazole 150 MG Oral Tablet DILCIA ([facility]) Doxycycline Monohydrate 100 MG Oral Capsule DILCIA ([facility]) Ciprofloxacin 500 MG Oral Tablet DILCIA ([facility]) Amoxicillin 875 MG / Clavulanate 125 MG Oral Tablet DILCIA ([facility])
[2020-09-21] MEDS ORDERED: TRIA1OI TOP (18:00)
--- OUTSIDE RECORDS SUMMARY | 2020-09-21 18:23 | CCD ---
Author Author [facility] Organization [facility] Address Unknown Phone Unavailable Care Team Providers Care Public Health Assistant Name Role Phone Liz Brown HVAC ESTIMATOR HVAC ESTIMATOR Unavailable Unavailable [place], A Juli HVAC ESTIMATOR Unavailable Unavailable [place], A Juli HVAC ESTIMATOR Unavailable Unavailable [place], A Juli HVAC ESTIMATOR Unavailable Unavailable [place], A Juli HVAC ESTIMATOR Unavailable Unavailable [place], A Juli HVAC ESTIMATOR Unavailable Unavailable [place], A Juli HVAC ESTIMATOR Unavailable Unavailable [place], A Juli HVAC ESTIMATOR Unavailable Unavailable [place], A Juli HVAC ESTIMATOR Unavailable Unavailable Ruben, A Juli HVAC ESTIMATOR Unavailable Unavailable Ruben, A Juli HVAC ESTIMATOR Unavailable Unavailable Ruben, A Juli HVAC ESTIMATOR Unavailable Unavailable Ruben, A Juli HVAC ESTIMATOR Unavailable Unavailable Ruben, A Juli HVAC ESTIMATOR Unavailable Unavailable Ruben, A Juli HVAC ESTIMATOR Unavailable Unavailable Ruben, A Juli HVAC ESTIMATOR Unavailable Unavailable Ruben, A Juli HVAC ESTIMATOR Unavailable Unavailable Ruben, A Juli HVAC ESTIMATOR Unavailable Unavailable Ruben, A Juli HVAC ESTIMATOR Unavailable Unavailable Ruben, A Juli HVAC ESTIMATOR Unavailable Unavailable Ruben, A Juli HVAC ESTIMATOR Unavailable Unavailable Ruben, A Juli HVAC ESTIMATOR Unavailable Unavailable Ruben, A Juli HVAC ESTIMATOR Unavailable Unavailable Ruben, A Juli HVAC ESTIMATOR Unavailable Unavailable Ruben, A Juli HVAC ESTIMATOR Unavailable Unavailable Ruben, A Juli HVAC ESTIMATOR Unavailable Unavailable Ruben, A Juli HVAC ESTIMATOR Unavailable Unavailable Ruben, A Juli HVAC ESTIMATOR Unavailable Unavailable Brown, F Liz HVAC ESTIMATOR-BC Unavailable Unavailable Brown, F Liz HVAC ESTIMATOR-BC Unavailable Unavailable Brown, F Liz HVAC ESTIMATOR-BC Unavailable Unavailable Brown, F Liz HVAC ESTIMATOR-BC Unavailable Unavailable Brown, F Liz HVAC ESTIMATOR-BC Unavailable Unavailable Brown, F Liz HVAC ESTIMATOR-BC Unavailable Unavailable Brown, F Liz HVAC ESTIMATOR-BC Unavailable Unavailable Brown, F Liz HVAC ESTIMATOR-BC Unavailable Unavailable Brown, F Liz HVAC ESTIMATOR-BC Unavailable Unavailable Brown, F Liz HVAC ESTIMATOR-BC Unavailable Unavailable Brown, F Liz HVAC ESTIMATOR-BC Unavailable Unavailable Brown, F Liz HVAC ESTIMATOR-BC Unavailable Unavailable Brown, F Liz HVAC ESTIMATOR-BC Unavailable Unavailable Brown, F Liz HVAC ESTIMATOR-BC Unavailable Unavailable Brown, F Liz HVAC ESTIMATOR-BC Unavailable Unavailable Brown, F Liz HVAC ESTIMATOR-BC Unavailable Unavailable Brown, F Liz HVAC ESTIMATOR-BC Unavailable Unavailable Brown, F Liz HVAC ESTIMATOR-BC Unavailable Unavailable Brown, F Liz HVAC ESTIMATOR-BC Unavailable Unavailable Brown, F Liz HVAC ESTIMATOR-BC Unavailable Unavailable Brown, F Liz HVAC ESTIMATOR-BC Unavailable Unavailable Brown, F Liz HVAC ESTIMATOR-BC Unavailable Unavailable [place], Juli HVAC ESTIMATOR HVAC ESTIMATOR Unavailable Unavailable [place], A Juli HVAC ESTIMATOR Unavailable Unavailable [place], A Juli HVAC ESTIMATOR Unavailable Unavailable [place], A Juli HVAC ESTIMATOR Unavailable Unavailable [place], A Juli HVAC ESTIMATOR Unavailable Unavailable [place], A Juli HVAC ESTIMATOR Unavailable Unavailable [place], A Juli HVAC ESTIMATOR Unavailable Unavailable [place], A Juli HVAC ESTIMATOR Unavailable Unavailable [place], A Juli HVAC ESTIMATOR Unavailable Unavailable [place], A Juli HVAC ESTIMATOR Unavailable Unavailable [place], A Juli HVAC ESTIMATOR Unavailable Unavailable [place], A Juli HVAC ESTIMATOR Unavailable Unavailable [place], A Juli HVAC ESTIMATOR Unavailable Unavailable [place], A Juli HVAC ESTIMATOR Unavailable Unavailable [place], A Juli HVAC ESTIMATOR Unavailable Unavailable [place], A Juli HVAC ESTIMATOR Unavailable Unavailable [place], A Juli HVAC ESTIMATOR Unavailable Unavailable [place], A Juli HVAC ESTIMATOR Unavailable Unavailable [place], A Juli HVAC ESTIMATOR Unavailable Unavailable [place], A Juli HVAC ESTIMATOR Unavailable Unavailable Ruben, A Juli HVAC ESTIMATOR Unavailable Unavailable Ruben, A Juli HVAC ESTIMATOR Unavailable Unavailable Ruben, A Juli HVAC ESTIMATOR Unavailable Unavailable Ruben, A Juli HVAC ESTIMATOR Unavailable Unavailable Ruben, A Juli HVAC ESTIMATOR Unavailable Unavailable Ruben, A Juli HVAC ESTIMATOR Unavailable Unavailable Ruben, A Juli HVAC ESTIMATOR Unavailable Unavailable Ruben, A Juli HVAC ESTIMATOR Unavailable Unavailable Re-disclosure Warning The records that [...] is protected by Article 27-F of the [place] Public [employer] law. If you continue you may have access to information: Regarding HIV / AIDS; Provided by facilities licensed or operated by the [place] Office of Mental Health; or Provided by the [place] Office for People With Developmental Disabilities. If such information is present, then the following [place] mandated warning applies: This information has been [...] law may result in a fine or senior care sentence or both. A general authorization for the release of medical or other information is NOT sufficient authorization for further disc losure. Encounters Encounter Providers Location Date Indications Data Source(s ) [facility] [place]-: [address] [place] [address], Ph. Attender: Juli YANCEY [facility] Medical 06/13/2020 12:00:00 AM EDT [place] ([facility]) Outpatient Attender: BC HOFFMANP FP 06/10/2020 03:57:00 P M EDT [facility] Outpatient Attender: Juli HOFFMANP FP 06/10/2020 03:5 6:04 PM EDT [facility] Outpatient Attender: CB HOFFMANP FP 06/10/2020 03:56:02 P M EDT [facility] Outpatient Attender: Juli HOFFMANP FP 06/09/2020 01:1 1:59 AM EDT [facility] Outpatient Attender: BC HOFFMANP FP 06/08/2020 11:51:00 A M EDT [facility] Outpatient Attender: BC HOFFMANP FP 06/06/2020 08:37:01 A M EDT [facility] Outpatient Attender: BC Miranda HVAC ESTIMATOR FP 06/05/2020 12:00:00 P M EDT [facility] Outpatient Attender: BC HOFFMANP FP 04/19/2020 07:19:00 A M EDT [facility] Outpatient Attender: BC Miranda HVAC ESTIMATOR FP 04/18/2020 01:04:03 P M EDT [facility] Outpatient Attender: BC HOFFMANP FP 04/17/2020 04:06:01 P M EDT [facility] Outpatient Attender: BC HOFFMANP FP 04/05/2020 01:40:02 P M EDT [facility] Outpatient Attender: BC HOFFMANP FP 04/03/2020 09:59:00 A M EDT [facility] Outpatient Attender: BC HOFFMANP FP 03/15/2020 08:05:00 A M EDT [facility] Outpatient Attender: Juli HOFFMANP FP 02/29/2020 09:2 4:01 PM EDT [facility] Outpatient Attender: BC HOFFMANP FP 02/29/2020 09:23:59 P M EDT [facility] Outpatient Attender: Juli HOFFMANP FP 02/29/2020 09:2 3:01 PM EDT [facility] Outpatient Attender: BC HOFFMANP FP 02/29/2020 09:22:59 P M EDT [facility] Outpatient Attender: Juli HOFFMANP FP 02/29/2020 09:2 2:02 PM EDT [facility] Outpatient Attender: BC YANCEY FP 02/29/2020 09:22:01 P M EDT [facility] Outpatient Attender: BC Ruben HVAC ESTIMATOR FP 02/29/2020 09:21:02 P M EDT [facility] Outpatient Attender: Juli Miranda HVAC ESTIMATOR FP 02/29/2020 09:2 1:01 PM EDT [facility] Outpatient Attender: BC HOFFMANP FP 02/21/2020 12:49:00 P M EDT [facility] Outpatient Attender: BC HOFFMANP FP 02/18/2020 11:52:01 A M EDT [facility] Outpatient Attender: Juli Ruben YANCEY FP 02/18/2020 11:5 1:00 AM EDT [facility] Outpatient Attender: BC YANCEY FP 02/18/2020 09:51:00 A M EDT [facility] Outpatient Attender: BC HOFFMANP FP 02/18/2020 09:26:01 A M EDT [facility] Outpatient Attender: Juli Ruben YANCEY FP 02/17/2020 11:3 5:00 AM EDT [facility] Outpatient Attender: BC YANCEY FP 02/15/2020 03:11:04 P M EDT [facility] [address] [place] [address] 01/31/2020 12:00:00 AM EDT eCW1 ([facility]) Outpatient Attender: Juli HOFFMANP FP 01/17/2020 11:5 9:01 PM EDT [facility] Outpatient Attender: BC HOFFMANP FP 01/13/2020 02:06:00 P M EDT [facility] Outpatient Attender: BC YANCEY FP 01/13/2020 09:20:02 A M EDT [facility] Outpatient Attender: BC YANCEY FP 12/30/2019 03:39:00 P M EDT [facility] Urology [address] [facility], [facility] [address] 12/27/2019 12:00:00 AM EDT eCW1 ([facility]) [facility] Urology [address] [facility] [address] 12/27/2019 12:00:00 AM EDT eCW1 ([facility]) [facility] Urology [address] [facility], [place] [address] 12/22/2019 12:00:00 AM EDT eCW1 ([facility]) [facility] Wom[facility] Center [address] [place] [address] 12/10/2019 12:00:00 AM EDT eCW1 ([facility]) Outpatient Attender: Liz CORONADO FP 12/03/2019 08: 42:00 PM EDT [facility] [address] [place] [address] 12/03/2019 12:00:00 AM EDT eCW1 ([facility]) Outpatient Attender: BC VASQUEZ 11/27/2019 10:30:01 PM EDT [facility] Outpatient Attender: Liz VASQUEZ 11/27/2019 10: 29:03 PM EDT [facility] Outpatient Attender: BC VASQUEZ 11/27/2019 10:29:01 PM EDT [facility] Outpatient Attender: BC VASQUEZ 11/23/2019 03:53:00 PM EDT [facility] Outpatient Attender: BC VASQUEZ 11/23/2019 10:26:01 AM EDT [facility] Outpatient Attender: Liz VASQUEZ 11/20/2019 11: 12:01 PM EDT [facility] Outpatient Attender: BC VASQUEZ 11/20/2019 11:11:59 PM EDT [facility] Outpatient Attender: BC VASQUEZ 11/17/2019 02:28:01 PM EDT [facility] Outpatient Attender: Liz VASQUEZ 11/16/2019 06: 05:01 PM EDT [facility] Outpatient Attender: BC VASQUEZ 11/16/2019 08:38:00 AM EDT [facility] Outpatient Attender: BC YANCEY FP 11/16/2019 08:24:01 AM EDT [facility] Outpatient Attender: Liz CORONADO FP 11/16/2019 08: 24:01 AM EDT [facility] [address] [facility] [address] 11/16/2019 12:00:00 AM EDT eCW1 ([facility]) Outpatient Attender: BC YANCEY FP 11/12/2019 11:31:01 AM EDT [facility] [address] [facility] [address] 11/01/2019 12:00:00 AM EDT eCW1 ([facility]) [facility] [address] [place] [address] 10/29/2019 12:00:00 AM EST eCW1 ([facility]) Outpatient Attender: BC YANCEY FP 10/25/2019 09:12:01 AM [facility] Outpatient 10/03/2019 06:35:00 PM [facility] Radiology Imaging Outpatient Attender: BC YANCEY FP 10/01/2019 11:03:00 AM [facility] Outpatient Attender: BC YANCEY FP 09/25/2019 08:51:01 AM [facility] Outpatient Attender: BC YANCEY FP 09/25/2019 08:50:00 AM [facility] Outpatient Attender: Liz CORONADO FP 09/24/2019 12: 06:00 PM [facility] Outpatient Attender: BC YANCEY FP 09/24/2019 11:51:00 AM [facility] Outpatient Attender: BC YANCEY FP 09/24/2019 11:50:00 AM [facility] Outpatient Attender: BC YANCEY FP 09/24/2019 11:13:00 AM [facility] Outpatient Attender: BC VASQUEZ 09/23/2019 11:19:58 AM [facility] Outpatient 09/21/2019 01:43:00 PM EST [facility] Radiology Imaging Outpatient 09/02/2019 03:11:00 PM [facility] Imaging Outpatient Attender: BC YANCEY FP 08/24/2019 02:16:00 PM [facility] Outpatient Attender: Liz CORONADO FP 08/24/2019 02: 15:59 PM [facility] Outpatient Attender: BC YANCEY FP 08/24/2019 08:18:38 AM [facility] Outpatient Attender: BC YANCEY FP 08/20/2019 09:00:00 AM [facility] Outpatient Attender: Lizwilfredo CORONADO FP 08/20/2019 08: 58:01 AM [facility] Outpatient Attender: BC YANCEY FP 08/19/2019 09:10:01 AM [facility] Outpatient Attender: Liz CORONADO 08/16/2019 12: 18:00 PM [facility] Medications Medication Brand Name Start Date Product Form Dose Route Admi nistrative Instructions Pharmacy Instructions Status Indications Reaction Description Data Source(s) Phenazopyridine hydrochloride 200 MG Oral Tablet Phena zopyridine HCl 200 MG Phenazopyridine HCl 200 MG 11/01/2019 12:00:00 AM EDT 1.0 {t ablet_after_meals} active Phenazopyridine HCl 200 MG eCW1 ([facility]) Phenazopyridine hydrochloride 200 MG Oral Tablet Phena zopyridine HCl 200 MG Phenazopyridine HCl 200 MG 11/01/2019 12:00:00 AM EDT active 1 tablet after meals eCW1 ([facility]) Phenazopyridine hydrochloride 200 MG Oral Tablet Phena zopyridine HCl 200 MG Phenazopyridine HCl 200 MG 11/01/2019 12:00:00 AM EDT active 1 tablet after meals eCW1 ([facility]) Triamcinolone Acetonide 0.001 MG/MG [place] Ointment Triamcinolone Acetonide 0.1 % Triamcinolone Acetonide 0.1 % 10/29/2019 12:00:00 AM EST 1.0 {application} active Triamcinolone Aceton calvin 0.1 % eCW1 ([facility]) Triamcinolone Acetonide 0.001 MG/MG [place] Ointment Triamcinolone Acetonide 0.1 % Triamcinolone Acetonide 0.1 % 10/29/2019 12:00:00 AM EST active 1 application eCW1 ([facility]) Triamcinolone Acetonide 0.001 MG/MG [place] Ointment Triamcinolone Acetonide 0.1 % Triamcinolone Acetonide 0.1 % 10/29/2019 12:00:00 AM EST active 1 application eCW1 ([facility]) Triamcinolone Acetonide 0.001 MG/MG [place] Ointment Triamcinolone Acetonide 0.1 % Triamcinolone Acetonide 0.1 % 10/29/2019 12:00:00 AM EST active 1 application eCW1 ([facility]) Ciprofloxacin 500 MG Oral Tablet ciprofloxacin 500 mg tablet ciprofloxacin 500 mg tablet completed ciprofloxaci n 500 MG Oral Tablet [place] ([facility]) Amoxicillin 875 MG / Clavulanate 125 MG Oral Tablet amoxicillin 875 mg-potassium clavulanate 125 mg tablet amoxicillin 875 mg-potassium clavulanate 125 mg tablet completed amoxicillin 875 MG / clavulanate 125 MG Oral Tablet [place] ([facility]) Triamcinolone Acetonide 0.001 MG/MG [place] Ointment triamcinolone acetonide 0.1 % topical ointment triamcinolone acetonide 0.1 % topical ointment completed triamcinolone acetonide 0.001 MG /MG Topical Ointment [place] ([facility]) Ondansetron 4 MG Oral Tablet ondansetron HCl 4 mg tabl et ondansetron HCl 4 mg tablet completed ondansetron 4 M G Oral Tablet [place] ([facility]) Doxycycline Monohydrate 100 MG Oral Caps ule doxycycline monohydrate 100 mg capsule doxycycline monohydrate 100 mg capsule completed doxycycline monohydrate 100 MG Oral Capsule [place] ([facility]) Fluconazole 150 MG Oral Tablet fluconazole 150 mg tabl et fluconazole 150 mg tablet completed fluconazole 150 MG Oral Tablet [place] ([facility]) Prednisone 20 MG Oral Tablet prednisone 20 mg tablet prednisone 20 mg tablet completed prednisone 20 MG Oral Tablet [place] ([facility]) Insurance Providers Payer name Policy type / Coverage type Policy ID Covered constitution party ID Covered constitution party's relationship to sterling Policy [place] Plan Information EMEDNY [id number] SP [id number] [employer] COMM[employer]ITY PLAN MCDHMO [id number] SP [id number] Medicaid S [id number] S [id number] Managed Care - [facility] Community Plan P [id number] S [id number] MEDICAID M [id number] S [id number] [facility](MCAID) O [id number] S [id number] Medicaid S [id number] S [id number] MEDICAID [id number] SP [id number] Managed Care - [facility] Community Plan P [id number] S [id number] Medicaid S [id number] S [id number] Managed Care - [facility] P [id number] S [id number] UNHC COMMUNITY PLAN MCDHMO [id number] SP [id number] [facility] U [id number] Self [id number] [facility] I [id number] Self [id number] ANSI-Medicaid [id number] ANSI-Medicaid [id number] ANSI-Not a Secondary Insurance [id number] ANSI-Not a Secondary Insurance [id number] ANSI-Medicaid [id number] ANSI-Medicaid [id number] Medicaid S [id number] S [id number] [facility] P [id number] S [id number] ANSI-Medicaid [id number] ANSI-Medicaid [id number] ANSI-Not a Secondary Insurance [id number] ANSI-Medicaid [id number] ANSI-Medicaid [id number] ANSI-Not a Secondary Insurance [id number] Medicaid S [id number] S [id number] [facility] P [id number] S [id number] Medicaid S [id number] S [id number] [facility] [id number] SO2 [id number] [facility] O [id number] S [id number] SELF PAY ONLY [id number] SP [id number] [facility] [id number] SO2 [id number] SELF PAY ONLY UNAVAILABLE SP UNAV AILABLE Problems, Conditions, and Diagnoses Code Display Name Description Problem Type Effective Dates Data Source(s) 525.13 LOSS OF TEETH DUE TO CARIES LOSS OF TEETH DUE TO VICENTE S 04/18/2020 01:03:50 PM EDT [facility] [id number] 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 Comple te Edentulism Due to Caries Problem 04/18/2020 12:00:00 AM EDT [place] ([facility]) R10.9 Unspecified abdominal pain Unspecified abdominal pain ( Right Flank) 04/05/2020 01:39:02 PM EDT [facility] 788.1 Dysuria Dysuria 04/05/2020 01:39:02 PM ED T [facility] N28.89 Other specified disorders of kidney and ureter Renal m ass 04/05/2020 01:39:02 PM EDT [facility] [id number] Finding of female genital functions Find ing of Female Genital Functions Problem 04/05/2020 12:00:00 AM EDT [place] ([facility]) 80078445 Abdominal pain Abdominal Pain Problem 04/05/2020 12:00: 00 AM EDT [facility]) 94740243 Dysuria Dysuria Problem 04/05/2020 12:00:00 AM ED T [place] ([facility]) 521.00 Dental caries Dental caries 02/18/2020 11:50:16 AM EDT [facility] [id number] Dental arch length loss secondary to [place] caries Dental Arch Length Loss Secondary to Dental Caries Problem 02/18/2020 12:00:00 AM EDT [place] ([facility]) V70.0 Encounter for general adult medical exam ination with abnormal findings Encounter for general adult medical examination with abnormal findings 01/13/2020 09:19:45 AM EDT [facility] [id number] Procedure by method Procedure by Method Problem 0 01/13/2020 12:00:00 AM [facility] [id number] Hyperlipidemia, unspecified Hyperlipidemia, unspecifie d 11/27/2019 10:28:13 PM EDT [facility] V65.8 Person consulting for explanation of exa mination or test findings Person consulting for explanation of examination or test findings 11/23/2019 10:24:28 AM EDT [facility] R73.03 Prediabetes Prediabetes 11/23/2019 10:24:28 AM EDT [facility] [id number] Patient asked to attend Patient Asked to Attend Proble m 11/23/2019 12:00:00 AM EDT [place] ([facility] er) [id number] Prediabetes Prediabetes Problem 11/23/2019 12:00:00 AM EDT [facility]) 45651835 Hyperlipidemia Hyperlipidemia Problem 11/23/2019 12:00: 00 AM EDT [facility]) V70.0 Health Screening Health Screening 11/16/2019 08 :23:09 AM EDT [facility] [id number] Clinical finding Clinical Finding Problem 11/16/2019 12 :00:00 AM EDT [place] ([facility]) N30.01 [id number] Hematuria due to acute cystitis Proble 11/01/2019 12:00:00 AM EDT eC ([facility]) N30.01 [id number] Hematuria due to acute cystitis Proble 11/01/2019 12:00:00 AM EDT eC ([facility]) L90.0 83798369 Lichen sclerosus Problem 10/29/2019 12:00:00 AM EST [facility] ([facility]) L90.0 37907820 Lichen sclerosus Problem 10/29/2019 12:00:00 AM EST eC ([facility]) N76.0 Acute vaginitis Vaginitis 09/24/2019 11:48:45 AM EST [facility] 92088416 Acute vaginitis Acute Vaginitis Problem 09/24/2019 12:0 0:00 AM EST [facility]) 77458523 Acute upper respiratory infection, unspe cified Acute upper respiratory infection, unspecified 08/24/2019 02:15:43 PM EST [facility] 574214572 Disorder of upper respiratory system Dis order of Upper Respiratory System Problem 08/24/2019 12:00:00 AM EST [facility]) Surgeries/Procedures Procedure Description Date Indications Data Source(s) URINE-NO MICRO 11/01/2019 12:00:00 AM EDT eCW1 ([facility]) Results ID Date Data Source [id number] 06/06/2020 09:41:22 AM EDT [facility] Labs In-House Urine TestsDate/Time Colle cted: June 06, 2020 8:55 AMTest Result Reference Range Normal ValueComments: Urine collected in officeAnna Spann MA, June 06, 2020 9:42 AMBlood TestsDate/Time Collected: June 06, 2020 8:55 AMTest Result Reference Range Normal ValueComments: Blood drawn in office from left AC, tolerated wellAnna Spann MA, June 06, 2020 9:42 AMAssessment & Plan Orders:[id number] Vst-Est Level I [[id number]] 82429 - Venipuncture [[id number]] Name Value Range Interpretation Code Description Data Rubina rce(s) Supporting Document(s) ID Date Data Source [id number] 06/06/2020 08:55:00 AM EDT [facility] Name Value Range Interpretation Code Description Data Rubina rce(s) Supporting Document(s) [facility]ECULTRTN [facility] Date Data Source [id number] 06/06/2020 08:55:00 AM EDT [facility] Name Value Range Interpretation Code Description Data Rubina rce(s) Supporting Document(s) APPEARANCE U CLEAR CLEAR N [facility] Fam melita Health SPEC GR URIN 1.009 1.002-1.035 N [facility] F amily Health UA COLOR STRAW YELLOW N [facility] ID Date Data Source [id number] 06/06/2020 08:55:00 AM EDT [facility] Name Value Range Interpretation Code Description Data Rubina rce(s) Supporting Document(s) HCT 40.3 % 36.0-47.0 N [facility] Health HGB 13.4 g/dL 12.0-15.5 N [facility] Family [facility] MCH 33.3 G/DL pg 32.0-36.5 N [facility] melita Health MCHC 30.2 PG % 27.0-33.0 N [facility] PLATELETS TNP 10 10*3/mm3 150-450 N [facility] RBC 4.43 10 10*6/mm3 4.00-5.40 N [facility] RDW 11.8 % 11.5-14.5 N [facility] WBC TOTAL 4.9 4.0-10.0 N [facility] ID Date Data Source [id number] 06/06/2020 08:55:00 AM EDT [facility] Name Value Range Interpretation Code Description Data Rubina rce(s) Supporting Document(s) HGBA1C 5.2 % N [facility] ID Date Data Source [id number] 06/06/2020 08:55:00 AM EDT [facility] Name Value Range Interpretation Code Description Data Rubina rce(s) Supporting Document(s) BG FASTING 87 mg/dL 70-100 N [facility] ID Date Data Source [id number] 04/18/2020 08:51:19 AM EDT [facility] Patient History Medical History:high cho lesterolhypertensionFamily History:Hypertension (Mother)kidney failure ( Father) Social/Personal History: Smoking Status: never smokerCurrent Problems: LOSS OF TEETH DUE TO CARIES (ICD- 525.13) (LIH50-K94.139)Unspecified abdominal pain ( Right Flank) (ICD10- R10.9)Dysuria (ICD-788.1) (KGV86-X88.0)Renal mass (ICD-593.9) (ICD10- N28.89)Dental caries (ICD-521.00) (CMN20-P32.9)Encounter for general adult medical examination with abnormal findings (ICD-V70.0) (ICD10- Z00.01)Hyperlipidemia, unspecified (DJI21-R50.5)Person consulting for explanation of examination or test findings (ICD-V65.8) (ZQC16-D55.2)Prediabetes (FWJ10-O68.03)Health Screening (ICD-V70.0) (SBI50-L79.9)Vaginitis (ICD-616.11) (DBH83-C62.0)Acute upper respiratory infection, unspecified (MVN49-B62.9)A llergic rhinitis, unspecified (CRH15-O68.9)Encounter for general adult medical examination without abnormal findings (LCF67-O28.00)Euthyroid hyperthyroxinamia (ICD-246.8) (YPT56-F96.89)Acute cystitis with hematuria (NSO32-W86.01)Other abnormal glucose (NLC95-R59.09)Fever, unspecified (ICD-780.60) (ICD10- R50.9)Vitamin D deficiency, unspecified (XJJ28-B12.9)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)Heel pain, left (ICD-729.5) (YLB09-L66.672)Sprain of unspecified ligament of left ankle, initial encounter (PQD07-S69.402A)Other circadian rhythm sleep disorder (SUC07-D92.29)Screening for malignant neoplasms of the cervix (ICD-V76.2) (ROD67-Q04.4)C/O - cough (ICD-786.2) (KWY21-I74)Acute tonsillitis, unspecified (AQL00-P22.90)Screening for colon cancer (ICD-V76.51) (ICD10- Z12.11)Screening for malignant neoplasm of breast (DQW86-T08.39)Encounter for screening for lipoid disorders (ICD-V77.91) (ZBI16-U38.220)Current Medications: * CIPRO 500 MG Twice daily; [...] 10 OMEGA-3 FISH OIL ORAL CAPSULE (COENZYME W94-LJKK OIL-VIT E) take 2 tabs po qd; [...] image on Tooth # 26 (Performed by Nihcole Triplett) B - (D0220) Intraoral, periapical, first radiographic image on Tooth # 8 (Performed by Nichole Triplett) Treatments:Type - CDT Code - Description T - (D5110) Complete denture - maxillary on Tooth # 1,2,3,4,5,6,7,8,9,10,11,12,13,14,15,16 (Performed by Nichole Triplett) Existing:Type - CDT Code - Description[E] Partial - Max Acryl On #2,3,4,5,6,7,10,11,12,13,14,15[E] Missing - [place] Only/Root Tip On #2 Surface O Region X[E] Resin-Based Composite - Direct On #1 Surface MO, #21 Surface DO, #22 Surface D, #29 Surface O[E] Missing - [place] and Root On #10 Surface I Region [...] XR Chart Notes:gabino (Apr 18 2020 12:03PM): [facility]- no changes as per daughter who translates Patient had a consult visit at [facility], and Dr. Dimas had recommended extraction of maxillary teeth and fabrication of maxillary complete denture. Dr. Mendez recommended UCD. Patient was informed of the wait time at [facility] for dentures. Daughter was not sure whether to have it done in [facility] or be referred out .Patient is wearing a denture max RPD which was Wfabricated in [facility] 9 with an abscess. Patient was prescribed antibiotics Daughter wanted to know if patient could take these antibiotics as she was have a procedure done on Apr 25. Dr. Mendez recommended that patient talked to her U.[employer] Revenue Officer about it Patient is brushing twice/day, flossing regularly and uses fl rinse Marginal and interproximal calculus in sextant 5. . Used hand instrumentsOHI-brushing am pm, flossing and then using Listerine zero total carePatient was cooperativeNV-6 months recall Nichole Triplett by gabino (04/18/2020 12:01 PM): ; tabitha (Apr 18 2020 1:03PM): [facility](-). CC: none. Reviewed Xrays. Exam: abscess location [...] NASAL SUSPENSIONCO-Q 10 OMEGA-3 FISH OIL ORAL VRECSYF68+ OTC MULTIVITAMINAllergies:No Known Allergies (updated 04/18/2020) Orders:Multi-Service Referral [CPT-54675] Name Value Range Interpretation Code Description Data Rubina rce(s) Supporting Document(s) ID Date Data Source [id number] 04/05/2020 12:15:39 PM EDT [facility] Measurements & CalculationsHeight: 61 inches (5 [...] (ER) or urgent care clinic? Yes - [facility] Emergency room (ER) or urgent care date reported today: 03/31/2020Have you seen another healthcare provider? Yes - Urology Have you seen a dentist? Yes - [facility] Intake performed by: Mariam Oleary LPN, April [...] ( Father) Social/Personal History: Chief Complaintfollow from [facility] for Renal Lesions room 15History of Present Illness (HPI)59 YO female here for follow up from [facility] for kidney lesions. Pt is accompanied [...] during this visit, including review of any ypfg-srd-fbfgvsg medications, herbal therapies, and/or supplements.Allergy ReviewAllergy List [...] GoodAssessment & Plan Problems:Added: Renal mass (ICD-593.9) (EGE40-F53.89) Assessment: Instructions: We have made a referral for you today. We will contact you to set this up.Please continue medications as prescribed. May take OTC tylenol as needed for pain.Unspecified abdominal pain ( Right Flank) (WAM72-R81.9) Assessment: Pt states right flank pain 2-3 on 0-10 scaleCT scan done solid renal mass need further work up. Instructions: May take tylenol as needed for for pain. please cotinue antibiotics until finished. Please try to maintain adequate intake of water daily.Renal mass (ICD-593.9) (LRD89-G42.89) Assessment: Recent CT scan at [facility] 04/01 indicates renal lesion/ renal mass. referral to oncology for further eval. Pt denies significant pain or blood in urine at this time.Dysuria (ICD-788.1) (YHN38-T63.0) Assessment: Pt was started on Cipro. Instructions: [...] dailyAllergies:No Known Allergies (updated 04/05/2020) Orders:Other Referral [962117] Adult - Ofc Vst, EST, Level III [CPT-72651] Follow-Up Return to clinic: as scheduled and as needed. Clinical Visit Summary Completed Name Value Range Interpretation Code Description Data Rubina rce(s) Supporting Document(s) ID Date Data Source [id number] 03/15/2020 08:26:35 AM EDT [facility] Measurements & CalculationsHeight: 61 inches (5 [...] during this visit, including review of any btfs-rbj-yocztlw medications, herbal therapies, and/or supplements.Allergy ReviewAllergy List [...] health is? Very GoodAssessment & Plan Problems:Assessed:Prediabetes (PUU84-D66.03) Assessment: Instructions: Your HGA1c is 5.7Please continue lifestyle changes to include healthy diet and physical activities. Please try to limit sugars and carbohydrates in your diet.Person consulting for explanation of examination or test findings (ICD-V65.8) (EOT52-B66.2) Assessment: Instructions: We have reviewed your lab [...] limit / avoid processed foods.Health Screening (ICD-V70.0) (UNZ36-C61.9) Assessment: Inst ructions: lab results reviewed with you today. Will recheck fasting labs in three months. Please fast for 8-10 hours prior to having labs drawn.Hyperlipidemia, unspecified (MXJ13-T52.5) Assessment: Instructions: Please continue lifestyle changes to include healthy diet and physical activities. Please try to limit sugars and carbohydrates and fats in your diet.Please try to avoid processed foods. Please try to maintain adequate fluid intake to include 6-8 glasses of water daily.Assessment not SavedVaginitis (HXI45-N96.0): Patient Instructions/Care Plan: Prediabetes: Your HGA1c is [...] NASAL SUSPENSIONCO-Q 10 OMEGA-3 FISH OIL ORAL KRJBADZ29+ OTC MULTIVITAMINMedication Changes:Added: * VITAMIN C GUMMIES-OTC 2 gummies once daily* VITAMIN D-one tablet once dailyTRIAMCINOLONE ACETONIDE 0.1 % EXTERNAL CREAM-apply to affected area twice daily as neededAllergies:No Known Allergies (updated 01/13/2020) Orders:COMP METABOLIC PANEL [CPT-07921] CBC W/DIFF [CPT- 91620] HgBA1c [CPT-76962] LIPID PANEL [CPT-43289] URINALYSIS [CPT-64111] Urine Culture [CPT-68891] Adult - Ofc Vst, EST, Level IV [CPT-52879] Follow-Up Return to clinic: 3 months for follow up Clinical Visit Summary Completed Name Value Range Interpretation Code Description Data Rubina rce(s) Supporting Document(s) ID Date Data Source [id number] 02/18/2020 10:15:18 AM EDT [facility] Current Problems: Dental caries (ICD-521 .00) (YVT76-E40.9)Encounter for general adult medical examination with abnormal findings (ICD-V70.0) (ICD10- Z00.01)Hyperlipidemia, unspecified (AEH82-F27.5)Person consulting for explanation of examination or test findings (ICD-V65.8) (ZXU34-Q16.2)Prediabetes (FUN83-O50.03)Health Screening (ICD-V70.0) (VKJ65-D81.9)Vaginitis (ICD-616.11) (TLB16-C02.0)Acute upper respiratory infection, unspecified (ICD10- J06.9)Allergic rhinitis, unspecified (LWJ54-V68.9)Encounter for general adult medical examination without abnormal findings (FUS11-R18.00)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)Heel pain, left (ICD-729.5) (ICD10- M79.672)Sprain of unspecified ligament of left ankle, initial encounter (ICD10- S93.402A)Other circadian rhythm sleep disorder (UFG07-K67.29)Screening for malignant neoplasms of the cervix (ICD-V76.2) (BEK34-F18.4)C/O - cough (ICD- 786.2) (KBJ27-D01)Acute tonsillitis, unspecified (UZV77-Z79.90)Screening for colon cancer (ICD-V76.51) (BGA49-B33.11)Screening for malignant neoplasm of breast (KVN23-A79.39)Encounter for screening for lipoid disorders (ICD-V77.91) (PEI06-K89.220)Current Medications: FLONASE ALLERGY RELIEF 50 MCG/ACT NASAL SUSPENSION (FLUTICASONE PROPIONATE) 2 sprays each nostril once a day; Route: NASALCO-Q 10 OMEGA-3 FISH OIL ORAL CAPSULE (COENZYME H88-TVTU OIL-VIT E) take 2 tabs po qd; [...] covid screening questionsPA taken-Dexis #9Exam reveals: loose jainism with decay underneath on tooth #9. Pts daughter states that [facility] has done a pre auth for a CRN but patient does not want to go back.pt. was cooperativeDX: caries with loose restorationAnesthesia: 20% Benzocaine topical, .5 carp 4% Septocaine w/ 1:100,000 epi (Upper anterior) jainism disloged with highspeed bur tooth #9, and [...] [place] she would likeMiguel Dimas DDS by syed (02/18/2020 11:50 AM): Tooth Notes and Watches: Assessment & Plan Problems:Added: Dental caries (ICD-521.00) (ICD10- K02.9)Medications:FLONASE ALLERGY RELIEF 50 MCG/ACT NASAL SUSPENSIONCO-Q 10 OMEGA-3 FISH OIL ORAL WXCPPOP16+ OTC MULTIVITAMINAllergies:No Known Allergies (updated 01/13/2020) Name Value Range Interpretation Code Description Data Rubina rce(s) Supporting Document(s) ID Date Data Source [id number] 02/15/2020 09:22:13 AM EDT [facility] In-House Urine TestsDate/Time Colle cted: February 15, 2020 8:45 AMTest Result Reference Range Normal ValuePing Calderón, February 15, 2020 9:23 AMBlood TestsDate/Time Collected: February 15, 2020 8:40 AMTest Result Reference Range Normal ValueComments: blood draw done in office, taken from left ac, tolerated well.Ping Calderón, February 15, 2020 9:23 AMAssessment & Plan Orders:[id number] Vst-Est Level I [CPT-63184] 07922 - Venipuncture [CPT-89834] Name Value Range Interpretation Code Description Data Rubina rce(s) Supporting Document(s) ID Date Data Source [id number] 02/15/2020 08:45:00 AM EDT [facility] Name Value Range Interpretation Code Description Data Rubina rce(s) Supporting Document(s) APPEARANCE U CLEAR CLEAR N [facility] SPEC GR URIN 1.005 1.002-1.035 N [facility] UA COLOR STRAW YELLOW N [facility] ID Date Data Source [id number] 02/15/2020 08:40:00 AM EDT [facility] Name Value Range Interpretation Code Description Data Rubina rce(s) Supporting Document(s) BG FASTING 83 mg/dL 70-100 N [facility] T4, FREE 0.98 ng/dL 0.76-1.46 N [facility] TSH 0.431 microintl units/mL 0.358-3.740 N [facility] VIT D25 TOT 37.9 ng/mL 30.0-100.0 N [facility] ID Date Data Source [id number] 02/15/2020 08:40:00 AM EDT [facility] Name Value Range Interpretation Code Description Data Rubina rce(s) Supporting Document(s) HGBA1C 5.7 % N [facility] ID Date Data Source [id number] 02/15/2020 08:40:00 AM EDT [facility] Name Value Range Interpretation Code Description Data Rubina rce(s) Supporting Document(s) HCT 38.6 % 36.0-47.0 N [facility] HGB 12.8 g/dL 12.0-15.5 N [facility] MCH 33.2 G/DL pg 32.0-36.5 N [facility] MCHC 30.0 PG % 27.0-33.0 N [facility] PLATELETS 265 10 10*3/mm3 150-450 N [facility] RBC 4.27 10 10*6/mm3 4.00-5.40 N [facility] RDW 11.8 % 11.5-14.5 N [facility] WBC TOTAL 5.9 4.0-10.0 N [facility] ID Date Data Source [id number] 01/13/2020 08:30:19 AM EDT [facility] Measurements & CalculationsHeight: 61 inches (5 [...] Have you seen a dentist? Yes - [facility] Intake performed by: Mariam Oleary LPN, January [...] or Preferred Language: EnglishFamily and Home Address: [address] [place] [address] [place] [address] What is your housing situation today? I have housing Are you worried about losing your housing? NoMoney and Resources In the past year, have you or any family members you live with been unable to get any of the following when it was really needed? Denies Insecurity: food, utilities, clothing, manager child, phone, legal services, otherWithin the past year [...] during this visit, including review of any hizh-vjp-hjgnewq medications, herbal therapies, and/or supplements.Allergy ReviewAllergy List [...] adult medical examination with abnormal findings (ICD-V70.0) (FBY13-Q73.01) Assessment: I nstructions: You have had your annual physical exam done today. Please continue lifestyle changes to include healthy diet and physical activities. Please try to limit sugars and carbohydrates and fats in your diet.Please try to avoid processed foods. Please try to maintain adequate fluid intake to include 6-8 glasses of water daily.Assessed:Hyperlipidemia, unspecified (ZKJ95-S87.5) Assessment: Instructions: Please continue lifestyle changes to include healthy diet and physical activities. Please try to limit sugars and carbohydrates and fats in your diet.Please try to avoid processed foods. Please try to maintain adequate fluid intake to include 6-8 glasses of water daily.Prediabetes (YPL53-K16.03) Assessment: Instructions: Please continue lifestyle changes to include healthy diet and physical activities. Please try to limit sugars and carbohydrates in your diet.Health Screening (ICD-V70.0) (ICD10- Z13.9) Assessment: Instructions: Please return to have fast labs done as scheduled.Assessment not Saved Health Screening (DVI52-S66.9): Patient Instructions/Care Plan: Hyperlipidemia- unspecified: Please continue [...] NASAL SUSPENSIONCO-Q 10 OMEGA-3 FISH OIL ORAL MLSAOYT52+ OTC MULTIVITAMINMedication Changes:R emoved:FLUCONAZOLE 150 MG ORAL TABLET-1 tab by mouth now and repeat in 3 days if symptoms persist Qty: 2[Tablet] Refills: 0, ALBUTEROL SULFATE HFA 108 (90 BASE) MCG/ACT INHALATION AEROSOL SOLUTION-2 puffs inhaled Q4H as needed cough Qty: 1[Inhaler] Refills: 1Allergies:No Known Allergies (updated 01/13/2020) Orders:COMP METABOLIC PANEL [CPT-76724] CBC W/DIFF [CPT-64214] HgBA1c [CPT- 89283] LIPID PANEL [CPT-82377] TSH [CPT-62148] T-4 free [CPT-94012] Vitamin D 250H Unspecified [CPT-88035] URINALYSIS [CPT-90736] Adult - Ofc Vst, EST, Level IV [CPT-65968] Follow-Up Return to clinic: 4-6 weeks for follow up Clinical Visit Summary CompletedMedications:Cancelled ALBUTEROL SULFATE HFA 108 (90 BASE) MCG/ACT INHALATION AEROSOL SOLUTION (ALBUTEROL SULFATE) 2 puffs inhaled Q4H as needed cough #1[Inhaler] x 1 Route:INHALATION Entered by: Mariam Oleary LPN Authorized by: Liz YANCEY Method used: Electronically to [facility] ([employer]) [address] [place] [address] RxID: [id number] FLUCONAZOLE 150 MG ORAL TABLET (FLUCONAZOLE) 1 tab by mouth now and repeat in 3 days if symptoms persist #2[Tablet] x 0 Route:ORAL Entered by: Mariam Oleary LPN Authorized by: Jade diaz signed by: Juli YANCEY on 01/13/2020 Method used: Electronically to [facility] ([employer]) [address] [place] [id number] RxID: [id number] signed by Juli YANCEY on 01/17/2020 at 11:58 PM Name Value Range Interpretation Code Description Data Rubina rce(s) Supporting Document(s) ID Date Data Source [id number] 11/23/2019 08:44:41 AM EDT [facility] Initial Intake Information from: melody rSmoking, Tobacco, Vaping or Smoke Exposure StatusSmoke Status: never smokerTobacco Use: NoDo you vape? NoPassive Smoke Exposure: NoMenstrual HistoryAny possibility of ? NoHealthcare HistorySince your last office visit...Have you been admitted to the hospital? NoHave you been to an emergency room (ER) or urgent care clinic? No - [facility]- kidney infection Emergency room (ER) or [...] during this visit, including review of any jxif-dqi-mvftdsz medications, herbal therapies, and/or supplements.Allergy ReviewAllergy List [...] health is? GoodAssessment & Plan Problems:Added: Prediabetes (QEN74-X89.03) Assessment: Instructions: Recent lab results indicates prediabetes. Please start lifestyle changes to include healthy diet and physical activities. Please try to limit sugars and carbohydrates in your diet.Person consulting for explanation of examination or test findings (ICD-V65.8) (CAH52-L65.2) Assessment: Instructions: We have reviewed your lab results with you today.Person consulting for explanation of examination or test findings (ICD-V65.8) (VPH03-W72.2) Assessment: Instructions: [facility] lab results are unremarkable except for HGA1c of 5.8 which indicates prediabetes. cholesterol was also elevated with your LDL at 122. Please continue lifestyle changes to include healthy diet and physical activities. Please try to limit sugars, carbohydrates, sodium and fats in your diet. Please try to limit / avoid processed foods.Hyperlipidemia, unspecified (FBY41-K64.5) Assessment: Instructions: Please start lifestyle changes to include healthy diet and physical activities. Please try to limit sugars and carbohydrates and fats in your diet.Please try to avoid processed foods. Please try to maintain adequate fluid intake to include 6-8 glasses of water daily.Assessed:Health Screening (ICD-V70.0) (LNT66-J13.9) Assessment: Instructions: Lab results reviewed with you [...] for explanation of examination or test findings: [facility] lab results are unremarkable except for HGA1c [...] NASAL SUSPENSIONCO-Q 10 OMEGA-3 FISH OIL ORAL UPOVKAW60+ OTC M ULTIVITAMINAllergies:No Known Allergies (updated 09/24/2019) Orders:COMP METABOLIC PANEL [CPT-39435] CBC W/DIFF [CPT-50412] HgBA1c [CPT-67344] LIPID PANEL [CPT-79055] Telephone E&M 11-20 min Medical Discussion [CPT-51395] Follow- Up Return to clinic: 3 months for follow up. Name Value Range Interpretation Code Description Data Rubina rce(s) Supporting Document(s) ID Date Data Source [id number] 11/16/2019 08:54:38 AM EDT [facility] In-House Blood TestsDate/Time Colle cted: November 16, 2019 8:54 AMTest Result Reference Range Normal ValueComments: blood draw done in offcie done in the right ac tolerated well Karsten Issa MA, November 16, 2019 8:54 AMAssessment & Plan Orders:[id number] Vst-Est Level I [CPT-64721] 80145 - Venipuncture [CPT-48882] Name Value Range Interpretation Code Description Data Rubina rce(s) Supporting Document(s) ID Date Data Source [id number] 11/16/2019 08:45:00 AM EDT [facility] Name Value Range Interpretation Code Description Data Rubina rce(s) Supporting Document(s) HGBA1C 5.8 % N [facility] ID Date Data Source [id number] 11/16/2019 08:45:00 AM EDT [facility] Name Value Range Interpretation Code Description Data Rubina rce(s) Supporting Document(s) HCT 40.0 % 36.0-47.0 N [facility] HGB 13.5 g/dL 12.0-15.5 N [facility] MCH 33.8 G/DL pg 32.0-36.5 N [facility] MCHC 30.3 PG % 27.0-33.0 N [facility] PLATELETS 259 10 10*3/mm3 150-450 N [facility] RBC 4.45 10 10*6/mm3 4.00-5.40 N [facility] RDW 12.1 % 11.5-14.5 N [facility] WBC TOTAL 5.3 4.0-10.0 N [facility] ID Date Data Source [id number] 11/16/2019 08:45:00 AM EDT [facility] Name Value Range Interpretation Code Description Data Rubina rce(s) Supporting Document(s) BG FASTING 88 mg/dL 70-100 N [facility] T4, FREE 1.01 ng/dL 0.76-1.46 N [facility] TSH 0.541 microintl units/mL 0.358-3.[address] [facility] VIT D25 TOT 29.4 ng/mL 30.0-100.0 L [facility] ID Date Data Source [id number] 09/24/2019 11:12:46 AM EST [facility] Measurements & CalculationsHeight: 61 inches (5 [...] (ER) or urgent care clinic? Yes - [facility] ER- kidney infection Emergency room (ER) or [...] Illness (HPI)Telemedicine visit with patient's location at [facility] and provider's location at offsite office. Additional person(s)participating in the visit: her daughter who translates for her. Pt here today for ER visit for kidney infection on 09/[address] [facility]. CT abd- no renal or bladder stone, [...] LUTS symptoms. Pt also requests referral to [facility] for chronic vaginal itching and burning.Pt also c/o vaginal itchiness, burning, no discharge.HPI performed by: Jade GARRETT, September 24, 2019 11:17 AMTransitions of Care InboundProblem ReviewProblem List was reviewed and/or updated during this visit.Medication Reconciliation & ReviewMedication List was reviewed and/or updated during this visit, including review of any vmrc-rdq-exkynux medications, herbal therapies, and/or supplements.Allergy ReviewAllergy List [...] is? GoodAssessment & Plan Problems:Added: Vaginitis (ICD-616.11) (DMQ56-N58.0) Assessment: Instructions: I have entered a GYNECOLOGY referral for you today. Our referrals department will contact you with further instructions on how to set up your appt for this referral. Please call our referrals dept if you don't hear about this referral within 2 weeks. [phone] ext [phone].Your prescriptions have been sent to your preferred pharmacy electronically, please take them as prescribed and report any significant side effects. If your symptoms resolve you can cancel the [facility] referral.Vaginitis (ICD-616.11) (YHK31-R74.0) Assessment: Unable to perfom exam due to telemed visit, but this appears to be a chronic issue for pt, will tx empirically with fluconazole as she has been on abx recently and refer to [facility].Assessed:Acute cystitis with hematuria (INA49-I22.01) Assessment: Instructions: I have entered a UROLOGY referral for you today. Our referrals department will contact you with further instructions on how to set up your appt for this referral. Please call our referrals dept if you don't hear about this referral within 2 weeks. [phone] ext [phone].Acute cystitis with hematuria (UJT33-R19.01) Assessment: Pt requests referral to uro for [...] hear about this referral within 2 weeks. [phone] ext [phone].Vaginitis: I have entered a GYNECOLOGY referral for you today. Our referrals department will contact you with further instructions on how to set up your appt for this referral. Please call our referrals dept if you don't hear about this referral within 2 weeks. [phone] ext [phone].Your prescriptions have been sent to your preferred pharmacy electronically, please take them as prescribed and report any significant side effects. If your symptoms resolve you can cancel the [facility] referral. Plan developed in collaboration with patient and/or familyMedications:FLUCONAZOLE 150 MG ORAL TABLETALBUTEROL SULFATE HFA 108 (90 BASE) MCG/ACT INHALATION AEROSOL SOLUTIONFLONASE ALLERGY RELIEF 50 MCG/ACT NASAL SUSPENSIONCO-Q 10 OMEGA-3 FISH OIL ORAL SOCLYVS58+ OTC MULTIVITAMINMedication Changes:New Prescription:FLUCONAZOLE 150 MG ORAL [...] daysAllergies:No Known Allergies (updated 09/24/2019) Orders:Urology Consult [CPT-80834] Child Development Instructor [CPT-98155] Office Visit - Established, Level 3 [CPT- 04303UD] Follow-Up Return to clinic: 3 months for follow up with in person bart yu Clinical Visit Summary Completed Name Value Range Interpretation Code Description Data Rubina rce(s) Supporting Document(s) ID Date Data Source [id number] 08/24/2019 09:41:02 AM [facility] Measurements & CalculationsHeight: 61 inches (5 ft. [...] (ER) or urgent care clinic? Yes - [facility] Emergency room (ER) or urgent care date [...] was dx with influenza on 08/15/[address] [facility]. Patient did not take Tamiflu due to [...] during this visit, including review of any hedo-yla-wyahlat medications, herbal therapies, and/or supplements.Allergy ReviewAllergy List [...] Plan Problems:Added: Acute upper respiratory infection, unspecified (JHM20-H48.9) Assessment: Instructions: Start doxycycline 100 mg po [...] general adult medical examination without abnormal findings (WHD17-J64.00) Assessment: Instructions: Repeat annual labs prior to [...] SUSPENSIONCO- Q 10 OMEGA-3 FISH OIL ORAL UPAERKL90+ OTC MULTIVITAMINMedication Changes:Refilled:FLONASE ALLERGY RELIEF 50 MCG/ACT [...] Orders:Adult - Ofc Vst, EST, Level III [CPT-38585] Follow-Up Return to clinic: in 3 months for follow upAdditional Follow-Up: annual vistMedications:ALBUTEROL SULFATE HFA 108 (90 BASE) MCG/ACT INHALATION AEROSOL SOLUTION (ALBUTEROL SULFATE) 2 puffs inhaled Q4H as needed cough #1[Inhaler] x 1 Route:INHALATION Entered and Authorized by: Liz YANCEY Method used: Electronically to [facility] ([facility]) [address] [place] [address] [address] [place] [address] Note to Pharmacy: Route: INHALATION; RxID: [id number] 20 MG ORAL TABLET (PREDNISONE) Take 2 tabs po QD for 5 days then 1 tab po QD for 5 days #15[Tablet] x 0 Route:ORAL Entered and Authorized by: Liz YANCEY Method used: Electronically to [facility] ([facility]) [address] [place] [address] [address] [place] [address] Note to Pharmacy: Route: ORAL; RxID: [id number] ALLERGY RELIEF 50 MCG/ACT NASAL SUSPENSION (FLUTICASONE PROPIONATE) 2 sprays each nostril once a day #1[Milliliter] x 3 Route:NASAL Entered and Authorized by: Liz YANCEY Method used: Electronically to [facility] (retail) [address] [place] [address] Note to Pharmacy: Route: NASAL; RxID: [id number] HYCLATE 100 MG ORAL CAPSULE (DOXYCYCLINE HYCLATE) Take one tab po BID for 5 days #10[Capsule] x 0 Route:ORAL Entered and Authorized by: Liz YANCEY Method used: Electronically to [facility] (retail) [address] [place] [address] Note to Pharmacy: Route: ORAL; RxID: [id number] signed by Liz YANCEY on 08/24/2019 at 2:15 PM Name Value Range Interpretation Code Description Data Rubina rce(s) Supporting Document(s) Procedure Social History Code Duration Value Status Description Data Source(s ) Smoking 12/03/2019 12:00:00 AM EDT Never Smoker completed Never S rut eCW1 ([facility]) Vital Signs ID Date Data Source UNK Name Value Range Interpretation Code Description Data Source(s) Body weight 2085 [oz_av] 2085 [oz_av] DILCIA ([facility]) Systolic blood pressure 109 mm[Hg] 109 mm[Hg] A THENA ([facility]) Body mass index (BMI) [Ratio] 24.6 kg/m2 24.6 k g/m2 DILCIA ([facility]) Body height 61 [in_i] 61 [in_i] DILCIA ([facility]) Diastolic blood pressure 78 mm[Hg] 78 mm[Hg] DILCIA ([facility]) Body weight 2008 [oz_av] 2008 [oz_av] DILCIA ([facility]) Systolic blood pressure 124 mm[Hg] 124 mm[Hg] A THENA ([facility]) Body height 61 [in_i] 61 [in_i] DILCIA ([facility]) Diastolic blood pressure 72 mm[Hg] 72 mm[Hg] DILCIA ([facility]) Body weight 2114.08 [oz_av] 2114.08 [oz_av] ATH HUMBLE ([facility]) Systolic blood pressure 131 mm[Hg] 131 mm[Hg] A THENA ([facility]) Body height 61 [in_i] 61 [in_i] DILCIA ([facility]) Diastolic blood pressure 80 mm[Hg] 80 mm[Hg] DILCIA ([facility]) Body weight 2082.08 [oz_av] 2082.08 [oz_av] ATH HUMBLE ([facility]) Systolic blood pressure 128 mm[Hg] 128 mm[Hg] A THENA ([facility]) Body height 61 [in_i] 61 [in_i] DILCIA ([facility]) Diastolic blood pressure 79 mm[Hg] 79 mm[Hg] DILCIA ([facility]) Diastolic blood pressure 68 mm[Hg] 68 mm[Hg] eCW1 ([facility]) Systolic blood pressure 142 mm[Hg] 142 mm[Hg] e CW1 ([facility]) Body mass index (BMI) [Ratio] 25.39 kg/m2 25.39 kg/m2 eCW1 ([facility]) Body height 60 [in_us] 60 [in_us] eCW1 ([facility]) Body weight Measured 130 [lb_av] 130 [lb_av] eC W1 ([facility]) Diastolic blood pressure 72 mm[Hg] 72 mm[Hg] eCW1 ([facility]) Systolic blood pressure 104 mm[Hg] 104 mm[Hg] e CW1 ([facility]) Body temperature 97.0 [degF] 97.0 [degF] eCW1 ( [facility]) Respiratory rate 18 /min 18 /min eCW1 ([facility]) Heart rate 74 /min 74 /min eCW1 ([facility]) Body mass index (BMI) [Ratio] 25.19 kg/m2 25.19 kg/m2 eCW1 ([facility]) Body height 60 [in_us] 60 [in_us] eCW1 ([facility]) Body weight Measured 129 [lb_av] 129 [lb_av] eC W1 ([facility]) Diastolic blood pressure 70 mm[Hg] 70 mm[Hg] eCW1 ([facility]) Systolic blood pressure 148 mm[Hg] 148 mm[Hg] e CW1 ([facility]) Body mass index (BMI) [Ratio] 25.19 kg/m2 25.19 kg/m2 eCW1 ([facility]) Body height 60 [in_us] 60 [in_us] eCW1 ([facility]) Body weight Measured 129 [lb_av] 129 [lb_av] eC W1 ([facility]) Body weight 2136 [oz_av] 2136 [oz_av] DILCIA ([facility]) Systolic blood pressure 128 mm[Hg] 128 mm[Hg] A [facility] ([facility]) Body height 61 [in_i] 61 [in_i] DILCIA ([facility]) Diastolic blood pressure 79 mm[Hg] 79 mm[Hg] DILCIA ([facility]) Body weight 2098.08 [oz_av] 2098.08 [oz_av] ATH HUMBLE ([facility]) Systolic blood pressure 137 mm[Hg] 137 mm[Hg] A [facility] ([facility]) Body height 61 [in_i] 61 [in_i] DILCIA ([facility]) Diastolic blood pressure 86 mm[Hg] 86 mm[Hg] DILCIA ([facility]) Patient Treatment Plan of Care Planned Activity Planned Date Details Description Data Source (s) Phenazopyridine hydrochloride 200 MG Oral Tablet 11/01/2019 12:00:0 0 AM EDT eCW1 ([facility]) Triamcinolone Acetonide 0.001 MG/MG Topical Ointment 12:00:00 AM EST eCW1 ([facility]) Triamcinolone Acetonide 0.001 MG/MG Topical Ointment 12:00:00 AM EST eCW1 ([facility]) Triamcinolone Acetonide 0.001 MG/MG Topical Ointment 12:00:00 AM EST eCW1 ([facility]) Triamcinolone Acetonide 0.001 MG/MG Topical Ointment DILCIA ([facility]) Prednisone 20 MG Oral Tablet DILCIA ([facility]) Ondansetron 4 MG Oral Tablet DILCIA ([facility]) Fluconazole 150 MG Oral Tablet DILCIA ([facility]) Doxycycline Monohydrate 100 MG Oral Capsule DILCIA ([facility]) Ciprofloxacin 500 MG Oral Tablet DILCIA ([facility]) Amoxicillin 875 MG / Clavulanate 125 MG Oral Tablet DILCIA ([facility])
== END 2020-09-21 18:30 | disposition home or self-care (01) ==
LOC: M ED 16:42
DX: N89.8 Other specified noninflammatory disorders of vagina (principal); I10 Essential (primary) hypertension; E78.5 Hyperlipidemia, unspecified; Z79.899 Other long term (current) drug therapy

== ENCOUNTER → 2020-10-09 | Outpatient (REF) | payer OTHER, MEDICAID ==
[~2020-10-09] MED LIST changes: +TRIA1OI TOP
[2020-10-09 12:46] LABS: BASO % 0.3 % (0.0-1.0); EOS # 0.2 10^3/uL (0.0-0.5); HEMATOCRIT 38.5 % (36.0-47.0); HEMOGLOBIN 12.8 g/dl (12.0-15.5); LYMPH # 2.8 10^3/uL (1.5-5.0); LYMPH % 47.3 % (24.0-44.0); MEAN CORPUSCULAR HEMOGLOBIN 30.5 pg (27.0-33.0); MEAN CORPUSCULAR HGB CONC 33.2 g/dl (32.0-36.5); MEAN CORPUSCULAR VOLUME 91.7 fl (80.0-96.0); MONO # 0.4 10^3/uL (0.0-0.8); MONO % 6.7 % (0.0-8.0); NEUTROPHILS # 2.5 10^3/uL (1.5-8.5); NEUTROPHILS % 41.5 % (36.0-66.0); PLATELET COUNT, AUTOMATED 249 10^3/uL (150-450)
[2020-10-09 13:16] LABS: ALBUMIN 3.9 GM/DL (3.2-5.2); ALT/SGPT 27 U/L (12-78); BILIRUBIN,TOTAL 0.6 MG/DL (0.2-1.0); BLOOD UREA NITROGEN 14 MG/DL (7-18); CALCIUM LEVEL 9.8 MG/DL (8.8-10.2); CARBON DIOXIDE LEVEL 29 MEQ/L (21-32); CHLORIDE LEVEL 106 MEQ/L (98-107); CHOLESTEROL LEVEL 247 MG/DL (<200); CHOLESTEROL RISK RATIO 4.049 (<5); CREATININE FOR GFR 0.85 MG/DL (0.55-1.30); GLOMERULAR FILTRATION RATE > 60.0 (>45); GLUCOSE, FASTING 81 MG/DL (70-100); HDL CHOLESTEROL 61 MG/DL (>40); LDL CHOLESTEROL 154 MG/DL (<100); NON-HDL-C 186 MG/DL; POTASSIUM SERUM 4.2 MEQ/L (3.5-5.1); SODIUM LEVEL 142 MEQ/L (136-145); TOTAL PROTEIN 7.7 GM/DL (6.4-8.2); TRIGLYCERIDES LEVEL 161 MG/DL (<150)
== END ==
LOC: M LAB REF 11:26
PROVIDERS: ATTEND Nurse Practitioner Family
DX: E78.5 Hyperlipidemia, unspecified (principal)

== ENCOUNTER → 2022-02-05 | Outpatient (CLI) | payer OTHER ==
[~2022-02-05] MED LIST changes: -IBUP200T45 PO; +IBUP200T46 PO
== END ==
LOC: M WHC 13:23
PROVIDERS: ATTEND Family Medicine Addiction Medicine
DX: Z12.31 Encounter for screening mammogram for malignant neoplasm of breast (principal)